=== PATIENT | male | born 1960 | race Caucasian/White ===

== ENCOUNTER 2018-04-20 00:35 | Inpatient (IN) | payer MEDICAID ==
[~2018-04-20] VITALS: Ht 182.9 cm; Wt 104.0 kg
[2018-04-20 01:26] LABS: PARTIAL THROMBOPLASTIN TIME 29 SECONDS (22-32); PROTHROMBIN TIME 10.5 SECONDS (9.0-12.0)
[2018-04-20 01:27] LABS: CHLORIDE 99 MMOL/L (99-107); POTASSIUM 3.6 MMOL/L (3.5-5.1); SODIUM 134 MMOL/L (135-145)
[2018-04-20 01:40] LABS: ANION GAP 8 (8-16); BILIRUBIN,TOTAL 0.3 MG/DL (0.1-1.0); BLOOD UREA NITROGEN 7 MG/DL (7-18); BUN/CREATININE RATIO 6.8 (5.4-32.0); CALCIUM 8.7 MG/DL (8.5-10.1); CREATININE 1.03 MG/DL (0.60-1.10); GLUCOSE 143 MG/DL (70-104); TOTAL CARBON DIOXIDE 27.2 MMOL/L (24-32); TOTAL PROTEIN 6.7 G/DL (6.4-8.2); eGFR 75 ML/MIN
[2018-04-20] MEDS ORDERED: ipratropium/albuterol 3ml nebule NEB PRN (01:40)
[2018-04-20 01:41] LABS: ALANINE AMINOTRANSFERASE 58 U/L (12-78); ALBUMIN 3.1 G/DL (3.4-5.0); ALBUMIN/GLOBULIN RATIO 0.9 (1.1-1.5); ALKALINE PHOSPHATASE 91 IU/L (46-116); ASPARTATE AMINO TRANSFERASE 40 U/L (10-37)
[2018-04-20] MEDS ORDERED: methylPREDNISolone sod succ 125mg/2ml vial IV ONE (02:00)
[2018-04-20] MEDS ORDERED: guaiFENesin/codeine phos 10ml UD oral syrup PO ONE (02:00)
[2018-04-20 02:01] LABS: BASOPHILS % (AUTO) 0.4 % (0-1); EOSINOPHILS # (AUTO) 0.1 X10'3 (0-0.9); EOSINOPHILS % (AUTO) 1.6 % (0-6); HEMATOCRIT 43.3 % (42.0-52.0); HEMOGLOBIN 14.6 g/dl (14.0-17.9); LYMPHOCYTES # (AUTO) 1.1 X10'3 (1.1-4.8); LYMPHOCYTES % (AUTO) 14.1 % (21-51); MEAN CORPUSCULAR HEMOGLOBIN 29.7 PG (27.0-31.0); MEAN CORPUSCULAR HGB CONC 33.7 % (33.0-36.5); MEAN CORPUSCULAR VOLUME 87.9 FL (78-98); MEAN PLATELET VOLUME 9.4 FL (7.4-10.4); MONOCYTES % (AUTO) 12.5 % (2-12); NEUTROPHILS # (AUTO) 5.6 X10'3 (1.8-7.7); NEUTROPHILS % (AUTO) 71.4 % (42-75); PLATELET COUNT 267 X10'3 (140-440); RED BLOOD COUNT 4.93 X10'6 (4.70-6.10); RED CELL DISTRIBUTION WIDTH 13.6 % (11.5-14.5); WHITE BLOOD COUNT 7.9 X10'3 (4.5-11.0)
[2018-04-20 03:36] LABS: ABG BASE EXCESS 3.2 mmol/L (-2.0-3.0); ABG OXYGEN SATURATION 87.9 % (95-98); ABG PH (T) 7.377 (7.350-7.450); ABG PO2 (T) 56.6 mmHg (83-108); PATIENT TEMPERATURE 38.1; TOTAL HEMOGLOBIN 14.4 G/dl (14.0-18.0)
[2018-04-20] MEDS ORDERED: HYDROmorphone 1 mg/ml syringe IV PRN (03:55)
[2018-04-20] MEDS ORDERED: diphenhydrAMINE 50 mg/ml inj IV PRN (03:55)
[2018-04-20] MEDS ORDERED: metoclopramide 5 mg/ml inj IV PRN (03:55)
[2018-04-20] MEDS ORDERED: acetaminophen 325mg tablet PO PRN ×2 (03:55)
[2018-04-20] MEDS ORDERED: magnesium hydroxide 30ml (MOM) UD suspension PO PRN (03:55)
[2018-04-20] MEDS ORDERED: ondansetron/PF 4mg/2ml inj IV PRN (03:55)
[2018-04-20] MEDS ORDERED: diphenhydrAMINE 25mg capsule PO PRN (03:55)
[2018-04-20] MEDS ORDERED: bisacodyl 10mg suppository rectal RC PRN (03:55)
[2018-04-20] MEDS ORDERED: acetaminophen 650mg rectal suppository RC PRN (03:55)
[2018-04-20] MEDS ORDERED: morphine 2 MG/ML inj. syringe IV PRN (03:55)
[2018-04-20] MEDS ORDERED: mag hydrox/Alum hydrox/simeth 30ml oral suspension PO PRN (03:55)
[2018-04-20] MEDS ORDERED: HYDROcodone/acetaminophen 10/325mg tab PO PRN (03:55)
[2018-04-20] MEDS ORDERED: MESSAGE TO PHARMACY PO ONE (04:05)
[2018-04-20] MEDS ORDERED: dextrose 50%-water 50ml dispensing syringe IV PRN ×2 (04:05)
[2018-04-20] MEDS ORDERED: glucagon, human recombinant 1mg kit SUBCUT PRN (04:05)
[2018-04-20] MEDS ORDERED: dextrose ORAL solution 15 GM/59 ML bottle PO PRN ×2 (04:05)
[2018-04-20] MEDS: potassium Cl 20mEq in NS 1,000 ML IV SCH ×3 (04:13→19:35)
[2018-04-20 04:21] LABS: CLARITY,URINE CLEAR (Clear); COLOR,URINE YELLOW (Yellow); GLUCOSE, URINE NEGATIVE (Neg); KETONES,URINE 15 mg/dl (Neg); LEUKOCYTE ESTERASE ,URINE NEGATIVE (Neg); NITRITES, URINE NEGATIVE (Neg); OCCULT BLOOD,URINE NEGATIVE (Neg); PROTEIN,URINE TRACE mg/dl (Neg); UROBILINOGEN,URINE 0.2 E.U/dL (0.2-1.0)
[2018-04-20 04:23] LABS: UA COLLECTION TYPE CLN CATCH MIDSTREAM
[2018-04-20 04:29] LABS: BACTERIA,URINE NONE SEEN /HPF (Neg); MUCUS STRANDS MANY /LPF (Neg); RBC,URINE NONE SEEN /HPF (0-2); SQUAMOUS EPITHELIAL CELL,UR MANY /LPF (FEW); WBC,URINE 0-4 /HPF (0-4)
[2018-04-20 04:40] LABS: D-DIMER 1.17 MG/L FEU (0-0.50)
[2018-04-20] MEDS ORDERED: TRAZ300T2 PO (04:50)
[2018-04-20] MEDS ORDERED: METF-436 PO (04:50)
[2018-04-20 05:45] LABS: URINE AMPHETAMINE SCREEN NEGATIVE (Neg); URINE BARBITUATE SCREEN NEGATIVE (Neg); URINE BENZODIAZEPINES SCREEN NEGATIVE (Neg); URINE CANNABINOID SCREEN NEGATIVE (Neg); URINE COCAINE SCREEN NEGATIVE (Neg); URINE METHADONE SCREEN NEGATIVE (Neg); URINE OPIATE SCREEN POSITIVE (Neg); URINE PHENCYCLIDINE SCREEN NEGATIVE (Neg)
[2018-04-20 06:00] VITALS: BP 133/88
[2018-04-20 06:55] LABS: MAGNESIUM 1.3 MG/DL (1.5-2.4); PHOSPHORUS 2.5 MG/DL (2.3-4.5)
[2018-04-20 07:06] LABS: HEMOGLOBIN A1C 7.2 % (4.5-6.2)
[2018-04-20] MEDS: CefTRIAXone/D5W-Rocephin 1gm 50 ML IV SCH ×2 (07:42→19:36)
[2018-04-20] MEDS: pantoprazole 40mg Tablet.DR PO SCH (07:42)
[2018-04-20] MEDS: docusate sod 100mg capsule PO SCH ×3 (07:53→20:04)
[2018-04-20] MEDS ORDERED: heparin, porcine 5000 units/ml vial SQ SCH (08:00)
[2018-04-20] MEDS ORDERED: nicotine 21mg patch - 24 hr TD SCH (08:00)
[2018-04-20] MEDS ORDERED: methylPREDNISolone sod succ 125mg/2ml vial IV SCH (08:00)
[2018-04-20] MEDS ORDERED: azithromycin/NS 500mg/250ml 250 ML IV SCH (08:00)
[2018-04-20] MEDS: oseltamivir phos 75mg capsule PO SCH ×2 (10:20→20:00)
[2018-04-20] MEDS ORDERED: magnesium 2GM in 50ml NS 50 ML IV PRN (10:30)
[2018-04-20] MEDS ORDERED: magnesium Cl slow-release 64mg tablet PO PRN (10:30)
[2018-04-20] MEDS ORDERED: magnesium 4gm in 100ml NS 100 ML IV PRN (10:30)
[2018-04-20] MEDS ORDERED: potassium Cl 20 mEq SR tablet PO PRN ×2 (10:30)
[2018-04-20 11:00] VITALS: BP 115/80
[2018-04-20] MEDS ORDERED: iohexol 350MG/ML 100ml bottle IV ONE (11:13)
[2018-04-20] MEDS: [UNRECOGNIZED DRUG - REMARK] PO NR (11:51)
[2018-04-20] MEDS: insulin Lispro (HumaLOG) vial - multi-dose SQ SCH ×3 (13:15→21:47)
[2018-04-20 15:00] VITALS: BP 121/75
[2018-04-20] MEDS: guaiFENesin 200 MG/10 ML oral syrup UD cup PO PRN ×2 (15:16→19:36)
[2018-04-20] MEDS: ipratropium/albuterol 3ml nebule NEB SCH ×3 (16:40→23:00)
[2018-04-20] MEDS: methylPREDNISolone sod succ 125mg/2ml vial IV SCH (16:56)
[2018-04-20 19:00] VITALS: BP 133/76
[2018-04-20] MEDS: heparin, porcine 5000 units/ml vial SQ SCH (19:37)
[2018-04-20] MEDS ORDERED: traZODone 150mg tablet PO SCH (20:00)
[2018-04-20] MEDS ORDERED: temazepam 15mg capsule PO PRN (21:00)
[2018-04-20 23:00] VITALS: BP 129/68
[2018-04-21 03:00] VITALS: BP 108/59
[2018-04-21] MEDS: ipratropium/albuterol 3ml nebule NEB SCH ×3 (03:00→11:06)
[2018-04-21 06:54] LABS: BASOPHILS % (AUTO) 0.1 % (0-1); EOSINOPHILS % (AUTO) 0 % (0-6); HEMOGLOBIN 13.9 g/dl (14.0-17.9); LYMPHOCYTES # (AUTO) 0.6 X10'3 (1.1-4.8); LYMPHOCYTES % (AUTO) 5.3 % (21-51); MEAN CORPUSCULAR HEMOGLOBIN 29.3 PG (27.0-31.0); MEAN CORPUSCULAR HGB CONC 33.1 % (33.0-36.5); MEAN CORPUSCULAR VOLUME 88.6 FL (78-98); MEAN PLATELET VOLUME 9.1 FL (7.4-10.4); MONOCYTES # (AUTO) 0.6 X10'3 (0-0.9); MONOCYTES % (AUTO) 5.3 % (2-12); NEUTROPHILS # (AUTO) 9.5 X10'3 (1.8-7.7); NEUTROPHILS % (AUTO) 89.3 % (42-75); PLATELET COUNT 287 X10'3 (140-440); RED BLOOD COUNT 4.74 X10'6 (4.70-6.10); RED CELL DISTRIBUTION WIDTH 13.2 % (11.5-14.5); WHITE BLOOD COUNT 10.7 X10'3 (4.5-11.0)
[2018-04-21 07:00] VITALS: BP 126/77
[2018-04-21 07:17] LABS: ALANINE AMINOTRANSFERASE 48 U/L (12-78); ALBUMIN 2.7 G/DL (3.4-5.0); ALBUMIN/GLOBULIN RATIO 0.8 (1.1-1.5); ALKALINE PHOSPHATASE 70 IU/L (46-116); ANION GAP 9 (8-16); ASPARTATE AMINO TRANSFERASE 26 U/L (10-37); BILIRUBIN,TOTAL 0.1 MG/DL (0.1-1.0); BLOOD UREA NITROGEN 11 MG/DL (7-18); BUN/CREATININE RATIO 11.3 (5.4-32.0); CALCIUM 7.9 MG/DL (8.5-10.1); CHLORIDE 104 MMOL/L (99-107); CHOL/HDL RATIO 3.7 (0.00-4.99); CHOLESTEROL 148 MG/DL (0-200); CREATININE 0.97 MG/DL (0.60-1.10); GLUCOSE 230 MG/DL (70-104); HDL CHOLESTEROL 40 MG/DL (35-60); LDL CHOLESTEROL 93 MG/DL (50-100); POTASSIUM 3.8 MMOL/L (3.5-5.1); SODIUM 139 MMOL/L (135-145); TOTAL CARBON DIOXIDE 26.5 MMOL/L (24-32); TOTAL PROTEIN 6.2 G/DL (6.4-8.2); TRIGLYCERIDES 83 MG/DL (20-135); eGFR 80 ML/MIN
[2018-04-21] MEDS: pantoprazole 40mg Tablet.DR PO SCH (07:26)
[2018-04-21] MEDS: oseltamivir phos 75mg capsule PO SCH (07:26)
[2018-04-21] MEDS: heparin, porcine 5000 units/ml vial SQ SCH (07:27)
[2018-04-21] MEDS: CefTRIAXone/D5W-Rocephin 1gm 50 ML IV SCH (07:27)
[2018-04-21] MEDS: methylPREDNISolone sod succ 125mg/2ml vial IV SCH ×2 (07:27)
[2018-04-21] MEDS: guaiFENesin 200 MG/10 ML oral syrup UD cup PO PRN (07:38)
[2018-04-21] MEDS ORDERED: nicotine 14mg patch - 24hr TD SCH (08:00)
[2018-04-21] MEDS: insulin Lispro (HumaLOG) vial - multi-dose SQ SCH (08:51)
[2018-04-21] MEDS: [UNRECOGNIZED DRUG - REMARK] PO NR (10:14)
[2018-04-21 11:00] VITALS: BP 141/73
[2018-04-21] MEDS ORDERED: ALBU6.7H INH (11:17)
[2018-04-21] MEDS ORDERED: CEPH500C5 PO (11:17)
[2018-04-21] MEDS ORDERED: FAMO-128 PO (11:17)
[2018-04-21] MEDS ORDERED: PRED10TA23 PO (11:17)
[2018-04-21] MEDS ORDERED: TAM75C PO (11:17)
== END 2018-04-21 13:47 | disposition home or self-care (01) | DRG 133 ==
LOC: ER 00:36 → ED HOLD 03:53 → PCU 3S 05:27
PROVIDERS: ADMIT Family Medicine; ATTEND Internal Medicine
PROC: B32T1ZZ Computerized Tomography (CT Scan) of Left Pulmonary Artery using Low Osmolar Contrast (ICD-10-PCS; principal; 2018-04-20)
PROC: B3201ZZ Computerized Tomography (CT Scan) of Thoracic Aorta using Low Osmolar Contrast (ICD-10-PCS; 2018-04-20)
PROC: B32S1ZZ Computerized Tomography (CT Scan) of Right Pulmonary Artery using Low Osmolar Contrast (ICD-10-PCS; 2018-04-20)
DX: J96.01 Acute respiratory failure with hypoxia (principal); E11.65 Type 2 diabetes mellitus with hyperglycemia; E83.42 Hypomagnesemia; J44.1 Chronic obstructive pulmonary disease with (acute) exacerbation; J09.X2 Influenza due to identified novel influenza A virus with other respiratory manifestations; J96.02 Acute respiratory failure with hypercapnia; F17.200 Nicotine dependence, unspecified, uncomplicated; Z88.8 Allergy status to other drugs, medicaments and biological substances; Z79.899 Other long term (current) drug therapy; Z71.6 Tobacco abuse counseling
CPT/HCPCS: 36415; 36600; 71045; 71275; 80053; 80061; 80305; 81001; 82803; 82948; 83036; 83605; 83735; 83880; 84100; 84145; 84439; 84443; 84480; 84484; 85018; 85025; 85379; 85610; 85730; 87040; 87502; 87503; 93306; 93970; 94640; 94760; 96374; 99285; G0378; J0456; J0696; J1644; J2930; Q9967

== ENCOUNTER 2019-02-06 08:56 | Emergency (ER) | payer MEDICAID ==
[~2019-02-06] VITALS: Ht 182.9 cm; Wt 80.0 kg
[~2019-02-06 08:56] MED LIST: ALBU6.7H9 INH; FAMO-128 PO; METF-436 PO; TAM75C PO; TRAZ300T2 PO
[2019-02-06 09:33] LABS: BASOPHILS # (AUTO) 0.1 X10'3 (0-0.2); BASOPHILS % (AUTO) 0.8 % (0-1); EOSINOPHILS # (AUTO) 0.1 X10'3 (0-0.9); EOSINOPHILS % (AUTO) 0.8 % (0-6); HEMATOCRIT 48.9 % (42.0-52.0); HEMOGLOBIN 16.8 g/dl (14.0-17.9); LYMPHOCYTES # (AUTO) 1.6 X10'3 (1.1-4.8); LYMPHOCYTES % (AUTO) 15.1 % (21-51); MEAN CORPUSCULAR HEMOGLOBIN 30.6 PG (27.0-31.0); MEAN CORPUSCULAR HGB CONC 34.4 g/dL (33.0-36.5); MEAN CORPUSCULAR VOLUME 88.8 FL (78-98); NEUTROPHILS # (AUTO) 8.1 X10'3 (1.8-7.7); NEUTROPHILS % (AUTO) 74.3 % (42-75); PLATELET COUNT 393 X10'3 (140-440); RED BLOOD COUNT 5.51 X10'6 (4.70-6.10); RED CELL DISTRIBUTION WIDTH 13.9 % (11.5-14.5); WHITE BLOOD COUNT 10.9 X10'3 (4.5-11.0)
[2019-02-06 09:42] LABS: PARTIAL THROMBOPLASTIN TIME 28 SECONDS (22-32)
[2019-02-06 09:46] LABS: ALANINE AMINOTRANSFERASE 25 U/L (12-78); ALBUMIN 3.6 G/DL (3.4-5.0); ALBUMIN/GLOBULIN RATIO 0.9 (1.1-1.5); ALKALINE PHOSPHATASE 180 IU/L (46-116); ANION GAP 6 (8-16); ASPARTATE AMINO TRANSFERASE 13 U/L (10-37); BILIRUBIN,TOTAL 0.4 MG/DL (0.1-1.0); BLOOD UREA NITROGEN 13 MG/DL (7-18); CALCIUM 9.5 MG/DL (8.5-10.1); CHLORIDE 98 MMOL/L (99-107); CREATININE 1.08 MG/DL (0.60-1.10); GLUCOSE 158 MG/DL (70-104); POTASSIUM 4.4 MMOL/L (3.5-5.1); SODIUM 136 MMOL/L (135-145); TOTAL CARBON DIOXIDE 32.3 MMOL/L (24-32); TOTAL PROTEIN 7.8 G/DL (6.4-8.2); eGFR 70 ML/MIN
[2019-02-06] MEDS ORDERED: cyclobenzaprine 10mg tablet PO ONE (12:05)
[2019-02-06] MEDS ORDERED: naproxen 500mg tablet PO ONE (12:05)
[2019-02-06] MEDS ORDERED: HYDROcodone/acetaminophen 10/325mg tab PO ONE (12:05)
[2019-02-06] MEDS ORDERED: NAPR-56 PO (12:09)
[2019-02-06] MEDS ORDERED: HYDR-4353 PO (12:09)
[2019-02-06] MEDS ORDERED: LISI10TA4 PO (12:09)
[2019-02-06] MEDS ORDERED: ZOLP10TA5 PO (12:09)
[2019-02-06 12:29] VITALS: BP 131/86
== END 2019-02-06 12:31 | disposition home or self-care (01) ==
LOC: ER 08:56
DX: R07.89 Other chest pain (principal); I10 Essential (primary) hypertension; R22.32 Localized swelling, mass and lump, left upper limb; E78.00 Pure hypercholesterolemia, unspecified; Z59.0 Homelessness; Z88.8 Allergy status to other drugs, medicaments and biological substances; V49.88XA Car occupant (driver) (passenger) injured in other specified transport accidents, initial encounter; Z79.899 Other long term (current) drug therapy; Y93.89 Activity, other specified; Y92.413 State road as the place of occurrence of the external cause; Y99.9 Unspecified external cause status
CPT/HCPCS: 36415; 71045; 80053; 84484; 85025; 85610; 85730; 93005; 99284

== ENCOUNTER 2019-03-01 11:34 | Emergency (ER) | payer MEDICAID ==
[~2019-03-01] VITALS: Ht 185.4 cm; Wt 80.0 kg
[~2019-03-01 11:34] MED LIST changes: +LISI10TA4 PO; +NAPR-56 PO; +ZOLP10TA5 PO
[2019-03-01 11:51] VITALS: BP 112/78
[2019-03-01] MEDS ORDERED: SULF1TAB49 PO (13:13)
[2019-03-01] MEDS ORDERED: IBUP-1986 PO (13:13)
[2019-03-01] MEDS ORDERED: CEPH-572 PO (13:13)
== END 2019-03-01 13:29 | disposition home or self-care (01) ==
LOC: ER 11:35
DX: L03.012 Cellulitis of left finger (principal); R07.89 Other chest pain; E78.00 Pure hypercholesterolemia, unspecified; I10 Essential (primary) hypertension; F15.90 Other stimulant use, unspecified, uncomplicated; Z87.891 Personal history of nicotine dependence; Z59.0 Homelessness; Z88.8 Allergy status to other drugs, medicaments and biological substances; Z79.899 Other long term (current) drug therapy
CPT/HCPCS: 99283

== ENCOUNTER 2019-03-26 09:31 | Emergency (ER) | payer MEDICAID ==
[~2019-03-26] VITALS: Ht 182.9 cm; Wt 81.0 kg
[~2019-03-26 09:31] MED LIST changes: +IBUP-1986 PO; -NAPR-56 PO; -ZOLP10TA5 PO
[2019-03-26 09:45] VITALS: BP 146/92
[2019-03-26] MEDS ORDERED: ketorolac tromethamine 15mg/ml inj. IV ONE (10:40)
== END 2019-03-26 11:13 | disposition home or self-care (01) ==
LOC: ER 09:32
DX: S62.313A Displaced fracture of base of third metacarpal bone, left hand, initial encounter for closed fracture (principal); E78.00 Pure hypercholesterolemia, unspecified; I10 Essential (primary) hypertension; F10.99 Alcohol use, unspecified with unspecified alcohol-induced disorder; F15.90 Other stimulant use, unspecified, uncomplicated; Z59.0 Homelessness; Z56.0 Unemployment, unspecified; Z79.899 Other long term (current) drug therapy; Z79.84 Long term (current) use of oral hypoglycemic drugs; W18.39XA Other fall on same level, initial encounter; Y93.89 Activity, other specified; Y92.89 Other specified places as the place of occurrence of the external cause; Y99.8 Other external cause status; Y90.9 Presence of alcohol in blood, level not specified
CPT/HCPCS: 29125; 73130; 96374; 99283; J1885

== ENCOUNTER 2019-06-22 16:12 | Inpatient (IN) | payer MEDICAID ==
[~2019-06-22] VITALS: Ht 182.9 cm; Wt 75.0 kg
[2019-06-22 18:01] LABS: BASOPHILS # (AUTO) 0.1 X10'3 (0-0.2); BASOPHILS % (AUTO) 0.3 % (0-1); EOSINOPHILS % (AUTO) 0.1 % (0-6); HEMATOCRIT 41.9 % (42.0-52.0); HEMOGLOBIN 14.1 g/dl (14.0-17.9); LYMPHOCYTES # (AUTO) 0.9 X10'3 (1.1-4.8); MEAN CORPUSCULAR HEMOGLOBIN 28.8 PG (27.0-31.0); MEAN CORPUSCULAR HGB CONC 33.8 g/dL (33.0-36.5); MEAN CORPUSCULAR VOLUME 85.4 FL (78-98); MEAN PLATELET VOLUME 8.4 FL (7.4-10.4); MONOCYTES # (AUTO) 1.7 X10'3 (0-0.9); MONOCYTES % (AUTO) 6.1 % (2-12); NEUTROPHILS # (AUTO) 25.9 X10'3 (1.8-7.7); NEUTROPHILS % (AUTO) 90.5 % (42-75); PLATELET COUNT 293 X10'3 (140-440); RED BLOOD COUNT 4.91 X10'6 (4.70-6.10); RED CELL DISTRIBUTION WIDTH 13.7 % (11.5-14.5)
[2019-06-22 18:06] LABS: WHITE BLOOD COUNT 28.6 X10'3 (4.5-11.0)
[2019-06-22 18:12] LABS: ALBUMIN 3.7 G/DL (3.4-5.0); ANION GAP 8 (8-16); BLOOD UREA NITROGEN 16 MG/DL (7-18); BUN/CREATININE RATIO 16.5 (5.4-32.0); C-REACTIVE PROTEIN 3.02 MG/DL (0.0-0.5); CALCIUM 9.2 MG/DL (8.5-10.1); CHLORIDE 97 MMOL/L (99-107); CREATININE 0.97 MG/DL (0.60-1.10); GLUCOSE 127 MG/DL (70-104); POTASSIUM 4.1 MMOL/L (3.5-5.1); SODIUM 131 MMOL/L (135-145); TOTAL CARBON DIOXIDE 26.5 MMOL/L (24-32); eGFR 80 ML/MIN
[2019-06-22] MEDS ORDERED: HYDROcodone/acetaminophen 5mg/325mg tablet PO ONE (18:25)
[2019-06-22] MEDS ORDERED: vancomycin/NS 1 GM ADD-VANTAGE 250 ML IV ONE (18:25)
[2019-06-22] MEDS ORDERED: piperacillin/tazo 3.375gm/50ml 50 ML IV ONE (18:25)
[2019-06-22 18:47] LABS: TOTAL CELLS COUNTED 100
[2019-06-22 18:48] LABS: PLATELET ESTIMATE NORMAL
[2019-06-22] MEDS ORDERED: ZOLP10TA PO (19:21)
[2019-06-22] MEDS ORDERED: normal saline 1000ML IV soln IVB ONE (19:30)
--- NOTE | 2019-06-22 20:33 | NUR ---
relieving RN for break, pt amb with steady gait to restroom, 1st liter NS infusing w/o, antibiotic infusing via pump, IV site is patent and clear,
[2019-06-22] MEDS ORDERED: acetaminophen 325mg tablet PO PRN ×2 (21:00)
[2019-06-22] MEDS ORDERED: mag hydrox/Alum hydrox/simeth 30ml oral suspension PO PRN (21:00)
[2019-06-22] MEDS ORDERED: magnesium hydroxide 30ml (MOM) UD suspension PO PRN (21:00)
[2019-06-22] MEDS ORDERED: ondansetron/PF 4mg/2ml inj IV PRN (21:00)
[2019-06-22] MEDS ORDERED: magnesium Cl slow-release 64mg tablet PO PRN (21:00)
[2019-06-22] MEDS ORDERED: magnesium 2GM in 50ml NS 50 ML IV PRN (21:00)
[2019-06-22] MEDS ORDERED: potassium CL 10mEq/100ml bag 100 ML IV PRN ×2 (21:00)
[2019-06-22] MEDS ORDERED: potassium Cl 20 mEq SR tablet PO PRN ×2 (21:00)
[2019-06-22] MEDS ORDERED: morphine 2 MG/ML inj. syringe IV PRN ×2 (21:00)
[2019-06-22] MEDS ORDERED: magnesium 4gm in 100ml NS 100 ML IV PRN (21:00)
--- NOTE | 2019-06-22 22:35 | NUR ---
PT ARRIVED TO ROOM 4006 FROM ER. PT HAS BEEN ORIENTED TO THE ROOM. VSS. RECEIVED REPORT FROM CHELLE MOORE PRIOR TO PT'S ARRIVAL.
[2019-06-22 22:40] VITALS: BP 114/74
[2019-06-22 23:29] LABS: HEMOGLOBIN A1C 6.7 % (4.5-6.2)
[2019-06-23] MEDS: piperacillin/tazo 3.375gm/50ml 50 ML IV SCH ×3 (01:42→18:51)
[2019-06-23] MEDS: HYDROcodone/acetaminophen 5mg/325mg tablet PO PRN ×3 (04:22→18:57)
[2019-06-23 05:31] LABS: BASOPHILS % (AUTO) 0.2 % (0-1); EOSINOPHILS # (AUTO) 0.1 X10'3 (0-0.9); EOSINOPHILS % (AUTO) 0.3 % (0-6); HEMATOCRIT 42.7 % (42.0-52.0); HEMOGLOBIN 14.4 g/dl (14.0-17.9); LYMPHOCYTES % (AUTO) 10.3 % (21-51); MEAN CORPUSCULAR HGB CONC 33.6 g/dL (33.0-36.5); MEAN CORPUSCULAR VOLUME 86.4 FL (78-98); MEAN PLATELET VOLUME 8.9 FL (7.4-10.4); MONOCYTES # (AUTO) 2.1 X10'3 (0-0.9); MONOCYTES % (AUTO) 10.4 % (2-12); NEUTROPHILS # (AUTO) 15.6 X10'3 (1.8-7.7); NEUTROPHILS % (AUTO) 78.8 % (42-75); PLATELET COUNT 313 X10'3 (140-440); RED BLOOD COUNT 4.94 X10'6 (4.70-6.10); RED CELL DISTRIBUTION WIDTH 14.1 % (11.5-14.5); WHITE BLOOD COUNT 19.8 X10'3 (4.5-11.0)
[2019-06-23 05:45] LABS: ALBUMIN 3.3 G/DL (3.4-5.0); ANION GAP 6 (8-16); BLOOD UREA NITROGEN 16 MG/DL (7-18); BUN/CREATININE RATIO 14.8 (5.4-32.0); CALCIUM 9.2 MG/DL (8.5-10.1); CHLORIDE 104 MMOL/L (99-107); CREATININE 1.08 MG/DL (0.60-1.10); GLUCOSE 122 MG/DL (70-104); MAGNESIUM 1.7 MG/DL (1.5-2.4); SODIUM 139 MMOL/L (135-145); eGFR 70 ML/MIN
--- NOTE | 2019-06-23 06:34 | NUR ---
Problems reprioritized. Patient report given, questions answered & plan of care reviewed with CHELLE BOB.
[2019-06-23 06:49] VITALS: BP 130/83
[2019-06-23] MEDS: enoxaparin 40mg/0.4ml syringe SQ SCH (07:26)
[2019-06-23] MEDS: vancomycin/NS 1 GM ADD-VANTAGE 250 ML IV SCH ×2 (07:27→21:49)
[2019-06-23] MEDS: lactobacillus rhamnosus 10,000 MMU CELLS/CAPSULE PO SCH ×2 (07:27→21:49)
[2019-06-23] MEDS: lisinopril 10 MG tablet PO SCH (07:27)
[2019-06-23] MEDS: K and/or MAG REPLACEMENT MC SCH ×2 (08:00→20:00)
[2019-06-23] MEDS ORDERED: pneumococcal 23-VAL P-sac vacc 25 mcg/0.5ml vial IMVAC ONE (10:00)
[2019-06-23] MEDS ORDERED: FLU VACC QS2019-20 36MOS UP/PF 60 MCG/0.5 ML SYRINGE IMVAC ONE (10:00)
[2019-06-23 10:03] LABS: PLATELET ESTIMATE NORMAL; TOTAL CELLS COUNTED 100
[2019-06-23 12:01] VITALS: BP 116/69
--- NOTE | 2019-06-23 12:24 | NUR ---
received report from tequila helm
--- NOTE | 2019-06-23 18:17 | NUR ---
GAVE REPORT TO CHELLE HIGGINBOTHAM
[2019-06-23 18:30] VITALS: BP 126/73
--- NOTE | 2019-06-23 19:13 | NUR ---
Patient in room ORTHO 4006. I have received report from CHELLE RODRIGUEZ and had the opportunity to ask questions and assume patient care.
[2019-06-23] MEDS: zolpidem 5mg tablet PO PRN (21:48)
[2019-06-23 22:00] VITALS: BP 133/79
[2019-06-24] MEDS: piperacillin/tazo 3.375gm/50ml 50 ML IV SCH ×3 (02:02→19:33)
[2019-06-24 06:01] LABS: BASOPHILS # (AUTO) 0.1 X10'3 (0-0.2); BASOPHILS % (AUTO) 0.6 % (0-1); EOSINOPHILS # (AUTO) 0.2 X10'3 (0-0.9); EOSINOPHILS % (AUTO) 1.5 % (0-6); HEMATOCRIT 39.2 % (42.0-52.0); HEMOGLOBIN 13.4 g/dl (14.0-17.9); LYMPHOCYTES # (AUTO) 1.8 X10'3 (1.1-4.8); LYMPHOCYTES % (AUTO) 17.7 % (21-51); MEAN CORPUSCULAR HEMOGLOBIN 29.5 PG (27.0-31.0); MEAN CORPUSCULAR HGB CONC 34.1 g/dL (33.0-36.5); MEAN CORPUSCULAR VOLUME 86.6 FL (78-98); MEAN PLATELET VOLUME 8.9 FL (7.4-10.4); MONOCYTES # (AUTO) 1.2 X10'3 (0-0.9); MONOCYTES % (AUTO) 11.7 % (2-12); NEUTROPHILS # (AUTO) 6.8 X10'3 (1.8-7.7); NEUTROPHILS % (AUTO) 68.5 % (42-75); PLATELET COUNT 283 X10'3 (140-440); RED BLOOD COUNT 4.53 X10'6 (4.70-6.10); WHITE BLOOD COUNT 9.9 X10'3 (4.5-11.0)
[2019-06-24 06:09] LABS: ALBUMIN 2.7 G/DL (3.4-5.0); ANION GAP 7 (8-16); BLOOD UREA NITROGEN 14 MG/DL (7-18); BUN/CREATININE RATIO 16.9 (5.4-32.0); CALCIUM 9.3 MG/DL (8.5-10.1); CHLORIDE 106 MMOL/L (99-107); CREATININE 0.83 MG/DL (0.60-1.10); GLUCOSE 124 MG/DL (70-104); MAGNESIUM 1.8 MG/DL (1.5-2.4); POTASSIUM 4.2 MMOL/L (3.5-5.1); SODIUM 140 MMOL/L (135-145); eGFR > 90 ML/MIN
--- NOTE | 2019-06-24 06:32 | NUR ---
Problems reprioritized. Patient report given, questions answered & plan of care reviewed with CHELLE SAUCEDO.
--- NOTE | 2019-06-24 06:35 | NUR ---
Patient in room ORTHO 4006. I have received report from CHELLE Calles and had the opportunity to ask questions and assume patient care.
[2019-06-24] MEDS: K and/or MAG REPLACEMENT MC SCH ×2 (08:00→19:33)
[2019-06-24] MEDS: vancomycin/NS 1 GM ADD-VANTAGE 250 ML IV SCH ×2 (08:30→16:29)
[2019-06-24] MEDS: lactobacillus rhamnosus 10,000 MMU CELLS/CAPSULE PO SCH ×2 (08:45→19:33)
[2019-06-24] MEDS: lisinopril 10 MG tablet PO SCH (08:45)
[2019-06-24] MEDS: enoxaparin 40mg/0.4ml syringe SQ SCH (08:46)
[2019-06-24 10:00] VITALS: BP 138/80
--- NOTE | 2019-06-24 11:28 | NUR ---
Student documentation: I have reviewed all interventions, assessments performed and documented by Karey [facility]ANK [facility]. Student Medication Administration: For this medication-pass time frame, all medication were reviewed, dispensed, administered and documented per hospital policy by Kareycarlos eduardo FRANK [facility].
[2019-06-24] MEDS: HYDROcodone/acetaminophen 5mg/325mg tablet PO PRN ×2 (16:34→21:42)
[2019-06-24 18:00] VITALS: BP 150/96
--- NOTE | 2019-06-24 18:25 | NUR ---
Problems reprioritized. Patient report given, questions answered & plan of care reviewed with CHELLE Hagen.
--- NOTE | 2019-06-24 18:43 | NUR ---
Patient in room ORTHO 4013. I have received report from aCren CORBETT and had the opportunity to ask questions and assume patient care.
--- NOTE | 2019-06-24 20:47 | NUR ---
Page Sent promotional table spacer PAGER ID: [phone] MESSAGE: Galen Quick 4006 here for left arm cellulitis had a critical vanco trough of 22.4. he is receiving vanco q8, next dose at midnight. also receiving Zosyn. would you like me to administer? Thanks Hieu [phone]
[2019-06-24 22:00] VITALS: BP 133/73
[2019-06-25] MEDS ORDERED: VANCOMYCIN 750MG IV in NS 250 ML IV SCH ×2
[2019-06-25] MEDS: piperacillin/tazo 3.375gm/50ml 50 ML IV SCH ×3 (02:19→18:00)
[2019-06-25] MEDS: HYDROcodone/acetaminophen 5mg/325mg tablet PO PRN ×3 (02:29→17:15)
[2019-06-25] MEDS ORDERED: LIDOcaine 1% W/epiNEPHrine 1:100,000 20ml vial SQ ONE (05:35)
[2019-06-25 06:00] VITALS: BP 130/72
--- NOTE | 2019-06-25 06:27 | NUR ---
Problems reprioritized. Patient report given, questions answered & plan of care reviewed with Maciel CORBETT.
[2019-06-25 06:50] LABS: BASOPHILS # (AUTO) 0.1 X10'3 (0-0.2); BASOPHILS % (AUTO) 1.5 % (0-1); EOSINOPHILS # (AUTO) 0.2 X10'3 (0-0.9); EOSINOPHILS % (AUTO) 2.4 % (0-6); HEMATOCRIT 39.7 % (42.0-52.0); HEMOGLOBIN 13.5 g/dl (14.0-17.9); LYMPHOCYTES # (AUTO) 1.8 X10'3 (1.1-4.8); LYMPHOCYTES % (AUTO) 19.9 % (21-51); MEAN CORPUSCULAR HEMOGLOBIN 29.6 PG (27.0-31.0); MEAN CORPUSCULAR HGB CONC 33.9 g/dL (33.0-36.5); MEAN PLATELET VOLUME 8.6 FL (7.4-10.4); MONOCYTES % (AUTO) 11.2 % (2-12); NEUTROPHILS # (AUTO) 5.8 X10'3 (1.8-7.7); PLATELET COUNT 305 X10'3 (140-440); RED BLOOD COUNT 4.57 X10'6 (4.70-6.10); RED CELL DISTRIBUTION WIDTH 13.7 % (11.5-14.5)
[2019-06-25 07:00] LABS: ALBUMIN 2.8 G/DL (3.4-5.0); ANION GAP 6 (8-16); BLOOD UREA NITROGEN 17 MG/DL (7-18); BUN/CREATININE RATIO 18.9 (5.4-32.0); CALCIUM 9.1 MG/DL (8.5-10.1); CHLORIDE 105 MMOL/L (99-107); GLUCOSE 154 MG/DL (70-104); MAGNESIUM 1.7 MG/DL (1.5-2.4); POTASSIUM 4.2 MMOL/L (3.5-5.1); SODIUM 139 MMOL/L (135-145); TOTAL CARBON DIOXIDE 27.6 MMOL/L (24-32); eGFR 87 ML/MIN
[2019-06-25] MEDS ORDERED: VANCOMYCIN LEVEL IV ONE (07:30)
[2019-06-25] MEDS: K and/or MAG REPLACEMENT MC SCH ×2 (09:21→20:00)
[2019-06-25] MEDS: lactobacillus rhamnosus 10,000 MMU CELLS/CAPSULE PO SCH ×2 (09:30→20:00)
[2019-06-25] MEDS: lisinopril 10 MG tablet PO SCH (09:32)
[2019-06-25] MEDS: enoxaparin 40mg/0.4ml syringe SQ SCH (09:33)
[2019-06-25 10:00] VITALS: BP 140/83
[2019-06-25] MEDS: vancomycin/NS 1 GM ADD-VANTAGE 250 ML IV SCH ×2 (10:28→15:57)
--- NOTE | 2019-06-25 11:32 | NUR ---
Student documentation: I have reviewed all interventions, assessments performed and documented by aKrey [facility]. Student Medication Administration: For this medication-pass time frame, all medication were reviewed, dispensed, administered and documented per hospital policy by Kareycarlos eduardo FRANK [facility].
[2019-06-25] MEDS ORDERED: CLIN-90 PO (11:42)
[2019-06-25 18:00] VITALS: BP 127/89
--- NOTE | 2019-06-25 18:38 | NUR ---
Problems reprioritized. Patient report given, questions answered & plan of care reviewed with SHAJI CORBETT.
--- NOTE | 2019-06-25 19:00 | NUR ---
Patient in room ORTHO 4006. I have received report from and had the opportunity to ask questions and assume patient care.
[2019-06-25 22:00] VITALS: BP 139/86
[2019-06-25] MEDS: zolpidem 5mg tablet PO PRN (22:17)
[2019-06-26] MEDS: vancomycin/NS 1 GM ADD-VANTAGE 250 ML IV SCH ×2 (00:46→07:59)
[2019-06-26] MEDS: piperacillin/tazo 3.375gm/50ml 50 ML IV SCH ×2 (03:11→10:14)
[2019-06-26] MEDS: HYDROcodone/acetaminophen 5mg/325mg tablet PO PRN ×2 (05:58→10:35)
[2019-06-26 06:00] VITALS: BP 179/94
--- NOTE | 2019-06-26 06:32 | NUR ---
Patient in room ORTHO 4006. I have received report from CHELLE Alarcon and had the opportunity to ask questions and assume patient care.
[2019-06-26] MEDS ORDERED: VANCOMYCIN LEVEL IV ONE (07:30)
[2019-06-26] MEDS: K and/or MAG REPLACEMENT MC SCH (07:54)
[2019-06-26] MEDS: lactobacillus rhamnosus 10,000 MMU CELLS/CAPSULE PO SCH (07:58)
[2019-06-26] MEDS: lisinopril 10 MG tablet PO SCH (07:58)
[2019-06-26] MEDS: enoxaparin 40mg/0.4ml syringe SQ SCH (07:59)
[2019-06-26 08:39] LABS: ANION GAP 2 (8-16); BLOOD UREA NITROGEN 15 MG/DL (7-18); CALCIUM 9.5 MG/DL (8.5-10.1); CHLORIDE 105 MMOL/L (99-107); CREATININE 0.75 MG/DL (0.60-1.10); GLUCOSE 128 MG/DL (70-104); MAGNESIUM 1.7 MG/DL (1.5-2.4); SODIUM 138 MMOL/L (135-145); TOTAL CARBON DIOXIDE 31.3 MMOL/L (24-32); VANCOMYCIN,TROUGH 16.3 UG/ML (6.0-14.0); eGFR > 90 ML/MIN
[2019-06-26 08:45] LABS: POTASSIUM 5.4 MMOL/L (3.5-5.1)
[2019-06-26 09:49] LABS: BASOPHILS # (AUTO) 0.1 X10'3 (0-0.2); EOSINOPHILS # (AUTO) 0.2 X10'3 (0-0.9); EOSINOPHILS % (AUTO) 2.1 % (0-6); HEMATOCRIT 43.1 % (42.0-52.0); HEMOGLOBIN 14.6 g/dl (14.0-17.9); LYMPHOCYTES # (AUTO) 1.4 X10'3 (1.1-4.8); LYMPHOCYTES % (AUTO) 16.5 % (21-51); MEAN CORPUSCULAR HEMOGLOBIN 29.4 PG (27.0-31.0); MEAN CORPUSCULAR HGB CONC 33.9 g/dL (33.0-36.5); MEAN CORPUSCULAR VOLUME 86.7 FL (78-98); MEAN PLATELET VOLUME 8.6 FL (7.4-10.4); MONOCYTES # (AUTO) 0.7 X10'3 (0-0.9); MONOCYTES % (AUTO) 8.3 % (2-12); NEUTROPHILS # (AUTO) 6.2 X10'3 (1.8-7.7); NEUTROPHILS % (AUTO) 72.1 % (42-75); PLATELET COUNT 360 X10'3 (140-440); RED BLOOD COUNT 4.97 X10'6 (4.70-6.10); RED CELL DISTRIBUTION WIDTH 14.1 % (11.5-14.5); WHITE BLOOD COUNT 8.6 X10'3 (4.5-11.0)
[2019-06-26 09:56] VITALS: BP 155/83
--- NOTE | 2019-06-26 10:40 | NUR ---
PAGER ID: [phone] MESSAGE: [phone] Galen Quick: Patient was hoping you could come see him as soon as you get the chance. Also , patient was wondering if he could get a prescription for pain meds for DC. CHELLE Krueger Ext [phone]
--- NOTE | 2019-06-26 11:28 | NUR ---
Discharged stable per Dr Leslie for DC. PIV taken out. DC papers signed. Educated on follow-up, meds, and wound care/symptoms worsening. Gave DM survival skills education handout. Meds called into [facility]. Wrist ID cutoff. Patient ambulated out of hospital.
== END 2019-06-26 11:35 | disposition home or self-care (01) | DRG 720 ==
LOC: ER 16:12 → ED HOLD 20:59 → ORTHO 4S 22:30
PROVIDERS: ADMIT Hospitalist; ATTEND Family Medicine
DX: A41.9 Sepsis, unspecified organism (principal); E87.1 Hypo-osmolality and hyponatremia; L03.114 Cellulitis of left upper limb; E78.00 Pure hypercholesterolemia, unspecified; F15.90 Other stimulant use, unspecified, uncomplicated; I10 Essential (primary) hypertension; Z59.0 Homelessness; Z56.0 Unemployment, unspecified; Z79.899 Other long term (current) drug therapy; Z88.8 Allergy status to other drugs, medicaments and biological substances
CPT/HCPCS: 36415; 73130; 80048; 80202; 82948; 83036; 83605; 83735; 84145; 85025; 85651; 86140; 87040; 87081; 90732; 96365; 99285; G0378; J1650; J2543; J3370; J7030; J7050; Q2037

== ENCOUNTER 2019-07-02 06:18 | Emergency (ER) | payer MEDICAID ==
[~2019-07-02] VITALS: Ht 182.9 cm; Wt 77.3 kg
[~2019-07-02 06:18] MED LIST changes: -ALBU6.7H9 INH; +CLIN-90 PO; -FAMO-128 PO; -IBUP-1986 PO; -METF-436 PO; -TAM75C PO; -TRAZ300T2 PO; +ZOLP10TA PO
[2019-07-02] MEDS ORDERED: ibuprofen tablet 400 MG TABLET PO ONE (07:20)
[2019-07-02] MEDS ORDERED: lisinopril 10 MG tablet PO ONE (07:20)
[2019-07-02] MEDS ORDERED: clindamycin 150mg capsule PO ONE (07:20)
[2019-07-02] MEDS ORDERED: LIDO700A32 TOP (07:22)
[2019-07-02] MEDS ORDERED: IBUP-1984 PO (07:22)
[2019-07-02] MEDS ORDERED: ibuprofen 200mg tablet PO ONE (07:25)
[2019-07-02] MEDS ORDERED: LIDOcaine 5% patch TP SCH (08:00)
[2019-07-02 08:51] VITALS: BP 141/87
== END 2019-07-02 08:53 | disposition home or self-care (01) ==
LOC: ER 06:19
DX: S76.811A Strain of other specified muscles, fascia and tendons at thigh level, right thigh, initial encounter (principal); R10.31 Right lower quadrant pain; E78.00 Pure hypercholesterolemia, unspecified; I10 Essential (primary) hypertension; F15.90 Other stimulant use, unspecified, uncomplicated; Z72.89 Other problems related to lifestyle; Z59.0 Homelessness; Z56.0 Unemployment, unspecified; Z88.8 Allergy status to other drugs, medicaments and biological substances; Z79.899 Other long term (current) drug therapy; X58.XXXA Exposure to other specified factors, initial encounter; Y93.89 Activity, other specified; Y92.89 Other specified places as the place of occurrence of the external cause; Y99.8 Other external cause status
CPT/HCPCS: 99284

== ENCOUNTER 2019-12-16 21:02 | Inpatient (IN) | payer MEDICAID ==
[~2019-12-16] VITALS: Ht 170.2 cm; Wt 83.6 kg
[~2019-12-16 21:02] MED LIST changes: -CLIN-90 PO; +CLIN-97 PO; +LIDO700A32 TOP; +calcium chloride 100 MG/1 ML inj IV ONE; +epiNEPHrine 0.1mg/ml 10ml syringe ONE; +sod chloride 0.9% 10ml flush syringe IV ONE; +sodium bicarbonate (8.4%) 1 mEq/ml syringe ONE
--- NOTE | 2019-12-16 21:19 | NUR ---
PT BECAME PULSLESS AGAIN. CPR RESTARTED. DR. ALICIA BACK AT BEDSIDE.
--- NOTE | 2019-12-16 21:23 | NUR ---
CPR STOPPED, PULSE BACK 113 BPM. CONTINUES ON VENT.
--- NOTE | 2019-12-16 21:47 | NUR ---
CPR RESTARTED AT 1944, D/T SUSTAINED BRADYCARDIA AT [address] ALICIA AT BEDSIDE. CPR STOPPED AFTER 3 MIN AND 1 MG EPI. PULSE RETURNED TO 100, NOW [address]
[2019-12-16 21:51] LABS: BASOPHILS # (AUTO) 0.1 X10'3 (0-0.2); BASOPHILS % (AUTO) 0.5 % (0-1); EOSINOPHILS # (AUTO) 0.1 X10'3 (0-0.9); EOSINOPHILS % (AUTO) 0.6 % (0-6); HEMATOCRIT 43.1 % (42.0-52.0); HEMOGLOBIN 13.4 g/dl (14.0-17.9); LYMPHOCYTES % (AUTO) 24.8 % (21-51); MEAN CORPUSCULAR HEMOGLOBIN 28.7 PG (27.0-31.0); MEAN CORPUSCULAR VOLUME 92.7 FL (78-98); MONOCYTES # (AUTO) 1.1 X10'3 (0-0.9); MONOCYTES % (AUTO) 9.1 % (2-12); NEUTROPHILS # (AUTO) 7.8 X10'3 (1.8-7.7); PLATELET COUNT 256 X10'3 (140-440); RED BLOOD COUNT 4.65 X10'6 (4.70-6.10); RED CELL DISTRIBUTION WIDTH 16.6 % (11.5-14.5)
[2019-12-16 21:55] LABS: ABG BASE EXCESS -22.2 mmol/L (-2.0-2.0); ABG HCO3 11.6 mmol/L (22.0-26.0); ABG OXYGEN SATURATION 91.7 % (94-97); ABG PCO2 (T) 64.2 mmHg (35.0-48.0); ABG PO2 (T) 101.8 mmHg (75.0-100.0); ALLEN'S TEST Yes; FCOHb 0.5 % (0.0-3.9); FMetHb 0.4 % (0.0-1.5); FO2Hb 90.9 % (94-97); PATIENT TEMPERATURE 37.1; PEEP 5 cm H2O; RESPIRATORY RATE 18 b/min; TIDAL VOLUME 450 mL; TOTAL HEMOGLOBIN 13.6 G/dl (14.0-18.0)
--- NOTE | 2019-12-16 21:55 | NUR ---
Marli general warehouse associate contact to get Artic cooling blanket for this patient. Dr. Combs asked for cooling measures. The pt does have ice packs to various areas of body currently.
[2019-12-16] MEDS ORDERED: propofol 1000mg/100ml bottle 100 ML IV ONE (22:00)
[2019-12-16 22:01] LABS: ALANINE AMINOTRANSFERASE 97 U/L (12-78); ALBUMIN 2.6 G/DL (3.4-5.0); ALBUMIN/GLOBULIN RATIO 0.8 (1.1-1.5); ALKALINE PHOSPHATASE 140 IU/L (46-116); ANION GAP 19 (8-16); ASPARTATE AMINO TRANSFERASE 80 U/L (10-37); BILIRUBIN,TOTAL 0.9 MG/DL (0.1-1.0); BLOOD UREA NITROGEN 32 MG/DL (7-18); BUN/CREATININE RATIO 14.7 (5.4-32.0); CALCIUM 8.3 MG/DL (8.5-10.1); CHLORIDE 100 MMOL/L (99-107); CREATININE 2.17 MG/DL (0.60-1.10); POTASSIUM 4.6 MMOL/L (3.5-5.1); SODIUM 137 MMOL/L (135-145); TOTAL CARBON DIOXIDE 17.7 MMOL/L (24-32); TOTAL PROTEIN 5.9 G/DL (6.4-8.2); eGFR 31 ML/MIN
--- NOTE | 2019-12-16 22:06 | NUR ---
A RELATIVE IS HERE TO GET UPDATE. BUTTER WRAPPER , DARRYL , OUT TO TALK TO FAMMILY MEMBER. PT JUST STARTED ON PROPAFOL INFUSION. WAS MAKING SOME PURPOSEFUL MOVEMENT, MOVING UPPER EXTREMITY SLIGHTLY AND CHEWING ON THE TUBE INTERMITTENTLY. TEMP PAREDES PLACED, HR 118. COOLING MEASURES STARTED AND PT WITH ICE PACKS.
[2019-12-16 22:08] LABS: GLUCOSE 167 MG/DL (70-104)
--- NOTE | 2019-12-16 22:12 | NUR ---
Drea CRANE AT BEDSIDE FOR ADMISSON TO ICU
--- NOTE | 2019-12-16 22:15 | NUR ---
Spoke to his brother, Gucci Quick Updated him.
[2019-12-16] MEDS ORDERED: CISatracurium besylate inj. 100 MG in normal saline 100ml IV soln 90 ML IV PRN (22:16)
[2019-12-16] MEDS ORDERED: midazolam 100mg in NS 100ml 100 ML IV PRN ×2 (22:16→22:30)
[2019-12-16] MEDS ORDERED: FENTANYL-0.9 % NACL/PF 100 ML IV PRN (22:16)
[2019-12-16 22:20] LABS: ANISOCYTOSIS 1+; NUCLEATED RED BLOOD CELLS 1 /100WBC (0-0); PLATELET ESTIMATE NORMAL; TOTAL CELLS COUNTED 100
[2019-12-16] MEDS ORDERED: acetaminophen 650mg rectal suppository RC PRN (22:20)
[2019-12-16] MEDS ORDERED: ipratropium/albuterol 3ml nebule NEB PRN (22:20)
[2019-12-16] MEDS ORDERED: acetaminophen 325mg tablet PO PRN (22:20)
[2019-12-16] MEDS ORDERED: LIDOcaine 2% 10ml TOPICAL JELLY (Urojet) TP ONE (22:20)
[2019-12-16] MEDS ORDERED: potassium Cl 20 mEq SR tablet PO PRN ×2 (22:20)
[2019-12-16] MEDS ORDERED: potassium Cl 20mEq/100mL bag 100 ML IV PRN ×2 (22:20)
[2019-12-16] MEDS ORDERED: ondansetron/PF 4mg/2ml inj IV PRN (22:20)
[2019-12-16] MEDS ORDERED: CISatracurium **Bolus** 2 mg/ml inj IV PRN (22:20)
[2019-12-16 22:25] LABS: URINE AMPHETAMINE SCREEN POSITIVE (Neg); URINE BARBITUATE SCREEN NEGATIVE (Neg); URINE BENZODIAZEPINES SCREEN NEGATIVE (Neg); URINE CANNABINOID SCREEN POSITIVE (Neg); URINE COCAINE SCREEN NEGATIVE (Neg); URINE METHADONE SCREEN NEGATIVE (Neg); URINE OPIATE SCREEN NEGATIVE (Neg); URINE PHENCYCLIDINE SCREEN NEGATIVE (Neg)
[2019-12-16 22:28] LABS: CLARITY,URINE CLOUDY (Clear); COLOR,URINE YELLOW (Yellow); GLUCOSE, URINE NEGATIVE (Neg); KETONES,URINE NEGATIVE (Neg); LEUKOCYTE ESTERASE ,URINE NEGATIVE (Neg); NITRITES, URINE NEGATIVE (Neg); OCCULT BLOOD,URINE MODERATE (Neg); PH,URINE 5.5 (4.8-8.0); PROTEIN,URINE 100 mg/dl (Neg); UROBILINOGEN,URINE 0.2 E.U/dL (0.2-1.0)
[2019-12-16] MEDS ORDERED: fentaNYL/PF 50MCG/1 ML 2ML syringe IV ONE (22:30)
[2019-12-16 22:32] LABS: UA COLLECTION TYPE FOLEY CATH
[2019-12-16 22:33] LABS: AMORPHOUS URATES 2+; BACTERIA,URINE NONE SEEN /HPF (Neg); HYALINE CASTS 0-3 /LPF (NEGATIVE); MUCUS STRANDS FEW /LPF (Neg); SQUAMOUS EPITHELIAL CELL,UR FEW /LPF (FEW); TRANSITIONAL EPI CELLS,URINE FEW /HPF; WBC,URINE 0-4 /HPF (0-4)
--- NOTE | 2019-12-16 22:36 | NUR ---
HYPOTHERMIA TREATMENT WITH ARCTIC SUN STARTED. DR. ALICIA AT BEDSIDE AND REQUESTED TO PUT IN ORDERS FOR VERSED AND FENTANYL THE PROPAFOL IS REQUIRING REGULAR BOLUS TO KEEP PT SEDATED. CURRENT HR 110, AND BP 105/66
[2019-12-16] MEDS ORDERED: vancomycin/NS 1 GM ADD-VANTAGE 250 ML IV ONE (22:40)
--- NOTE | 2019-12-16 22:43 | NUR ---
Spoke with the sister, her name is Digna, She told me that he recently was a pt. in [place] and had PNE and various blood clots and at that time they had a discussion and he didn't want to be rescusitated or on a vent. I just told this information to Dr. Combs and Juan Alberto the molding machine setter PA and gave Juan Alberto the phone number for Digna.
--- NOTE | 2019-12-16 23:03 | NUR ---
PROPAFOL DISCONTINUED AND FENTANYL AND VERSED STARTED PER PROTOCOL.
--- NOTE | 2019-12-16 23:28 | NUR ---
DR. ALICIA AT BEDSIDE FOR CENTRAL LINE PLACEMENT.
[2019-12-17] VITALS (24 sets, daily range): BP systolic 81–135; BP diastolic 47–88
[2019-12-17] MEDS ORDERED: piperacillin/tazo 3.375gm/50ml 50 ML IV SCH
[2019-12-17] MEDS ORDERED: NORepinephrine 8mg/ 250ml NS 250 ML IV PRN (00:04)
[2019-12-17 00:11] LABS: OXYGEN SATURATION (MIXED VEN) 75.9 % (60-80)
[2019-12-17] MEDS ORDERED: normal saline 1000ml 1,000 ML IV ONE (00:15)
[2019-12-17] MEDS: normal saline 1000ML IV soln IVB ONE ×2 (00:43→00:55)
--- NOTE | 2019-12-17 01:09 | NUR ---
2350 PTS CENTRAL LINE SUCCESSFULLY PLACED AND CONFIRMED PLACEMENT BY XRAY AND OK TO USE PER DR. ALICIA. REPORTS TO ME THAT HE SPOKE WITH THE PATIENTS SISTER OVER THE PHONE VILMAShi IS A RETIRED ER NURSE). SHE REPORTED THAT PT WAS RECENTLY HOSPITALIZED IN [place] FOR PNEUMONIA AND HAS A HISTORY OF BLOOD CLOTS. SHE ALSO STATES THAT PT IS DNR.
--- NOTE | 2019-12-17 01:30 | NUR ---
PT ARRIVED TO ROOM VIA GURNEY AROUND 0105. REPORT RECEIVED FROM AYDEN CORBETT AND I WAS ABLE TO ASK QUESTIONS. PT TRANSFERRED TO HOSPITAL BED, PLACED ON VENT, AND PLACED ON OUR MONITOR. FENTANYL AND VERSED DRIPS TRANSFERRED TO CENTRAL LINE, CVP BEING MONITORED. Spinal Integration IS ON AND WORKING WELL. PT'S BP IS ON THE LOWER SIDE BUT HE IS MAINTAINING A MAP GREATER THAN 60mmHG. LEVOPHED IS ALREADY PRIMED IN THE PUMP SHOULD THE PT NEED IT. WILL CONTINUE TO MONITOR
[2019-12-17] MEDS: normal saline 1000ml 1,000 ML IV SCH ×3 (01:47→20:35)
[2019-12-17] MEDS: K, MAG and/or Phos replacement - Verify level? MC SCH ×2 (01:52→08:00)
[2019-12-17 02:07] LABS: CREATINE KINASE 1089 U/L (39-308)
[2019-12-17 02:16] LABS: ABG BASE EXCESS -8.9 mmol/L (-2.0-2.0); ABG HCO3 16.7 mmol/L (22.0-26.0); ABG OXYGEN SATURATION 98.5 % (94-97); ABG PCO2 (T) 29.7 mmHg (35.0-48.0); ABG PO2 (T) 121.2 mmHg (75.0-100.0); ALLEN'S TEST POSITIVE; FCOHb 0.3 % (0.0-3.9); FMetHb 0.2 % (0.0-1.5); PEEP 5 cm H2O; RESPIRATORY RATE 20 b/min; TOTAL HEMOGLOBIN 14.7 G/dl (14.0-18.0)
[2019-12-17 03:48] LABS: BASOPHILS % (AUTO) 0.1 % (0-1); EOSINOPHILS % (AUTO) 0 % (0-6); HEMATOCRIT 43.3 % (42.0-52.0); HEMOGLOBIN 13.9 g/dl (14.0-17.9); LYMPHOCYTES # (AUTO) 0.4 X10'3 (1.1-4.8); MEAN CORPUSCULAR HEMOGLOBIN 28.7 PG (27.0-31.0); MEAN CORPUSCULAR HGB CONC 32.1 g/dL (33.0-36.5); MEAN CORPUSCULAR VOLUME 89.3 FL (78-98); MEAN PLATELET VOLUME 8.3 FL (7.4-10.4); MONOCYTES # (AUTO) 1.4 X10'3 (0-0.9); MONOCYTES % (AUTO) 6.4 % (2-12); NEUTROPHILS # (AUTO) 20.5 X10'3 (1.8-7.7); NEUTROPHILS % (AUTO) 91.5 % (42-75); PLATELET COUNT 207 X10'3 (140-440); RED BLOOD COUNT 4.85 X10'6 (4.70-6.10); RED CELL DISTRIBUTION WIDTH 15.7 % (11.5-14.5); WHITE BLOOD COUNT 22.3 X10'3 (4.5-11.0)
[2019-12-17 03:58] LABS: PARTIAL THROMBOPLASTIN TIME 26 SECONDS (22-32)
[2019-12-17 04:02] LABS: ALANINE AMINOTRANSFERASE 125 U/L (12-78); ALBUMIN 2.5 G/DL (3.4-5.0); ALBUMIN/GLOBULIN RATIO 0.8 (1.1-1.5); ALKALINE PHOSPHATASE 138 IU/L (46-116); ANION GAP 13 (8-16); ASPARTATE AMINO TRANSFERASE 166 U/L (10-37); BILIRUBIN,TOTAL 1.1 MG/DL (0.1-1.0); BLOOD UREA NITROGEN 34 MG/DL (7-18); BUN/CREATININE RATIO 20.2 (5.4-32.0); CALCIUM 7.8 MG/DL (8.5-10.1); CHLORIDE 101 MMOL/L (99-107); CREATININE 1.68 MG/DL (0.60-1.10); GLUCOSE 152 MG/DL (70-104); POTASSIUM 3.6 MMOL/L (3.5-5.1); SODIUM 137 MMOL/L (135-145); TOTAL CARBON DIOXIDE 22.9 MMOL/L (24-32); TOTAL PROTEIN 5.8 G/DL (6.4-8.2); eGFR 42 ML/MIN
[2019-12-17 04:05] LABS: MAGNESIUM 1.6 MG/DL (1.5-2.4); PHOSPHORUS 3.6 MG/DL (2.3-4.5)
--- NOTE | 2019-12-17 06:20 | NUR ---
Problems reprioritized. Patient report given, questions answered & plan of care reviewed with YOUNG CORBETT.
--- NOTE | 2019-12-17 06:30 | NUR ---
Patient in room ICU 2040. I have received report from Sherry CORBETT and had the opportunity to ask questions and assume patient care.
--- NOTE | 2019-12-17 06:45 | NUR ---
Dr. Goodman called and ordered cooling to be stopped, sedation to be turned off, blankets to be put on patient to encourage rewarming. Dr. Goodman will be calling patient's sister My to discuss future interventions.
--- NOTE | 2019-12-17 07:45 | NUR ---
Donor network has been called. Reference # [id number] (Contact: Larry). Patient may be eligible donor, network will call back.
[2019-12-17 07:47] LABS: CREATINE KINASE 1849 U/L (39-308); TROPONIN I 0.41 NG/ML (0.0-0.05)
--- NOTE | 2019-12-17 07:59 | NUR ---
Patient's BP was 80/55 (MAP 63), decided to turn on Levophed, low dose (.1-.05). As soon as Levophed was started, patient's HR went from high 80s NSR, to low 60s - 40s AFIB. Levophed was turned off. Patient's rhythm quickly returned to NSR and HR returned to mid to high 80s within 30 seconds.
--- NOTE | 2019-12-17 08:15 | NUR ---
Patient is considered an eligible donor, according to the donor network. They are sending a community representative and do not want him extubated.
[2019-12-17] MEDS: heparin, porcine 5000 units/ml vial SQ SCH ×2 (08:33→21:30)
[2019-12-17] MEDS: piperacillin/tazo 3.375gm/50ml 50 ML IV SCH ×2 (08:33→16:04)
[2019-12-17] MEDS: pantoprazole 40 MG vial IV SCH (08:33)
[2019-12-17] MEDS ORDERED: CETI10TA18 PO (10:31)
[2019-12-17] MEDS ORDERED: LISI-643 PO (10:31)
[2019-12-17] MEDS ORDERED: normal saline 1000ml 1,000 ML IVB ONE (12:09)
[2019-12-17 13:35] LABS: BASOPHILS % (AUTO) 0.1 % (0-1); EOSINOPHILS % (AUTO) 0 % (0-6); HEMATOCRIT 41.2 % (42.0-52.0); HEMOGLOBIN 13.4 g/dl (14.0-17.9); LYMPHOCYTES # (AUTO) 0.4 X10'3 (1.1-4.8); LYMPHOCYTES % (AUTO) 2.5 % (21-51); MEAN CORPUSCULAR HEMOGLOBIN 28.4 PG (27.0-31.0); MEAN CORPUSCULAR HGB CONC 32.6 g/dL (33.0-36.5); MEAN CORPUSCULAR VOLUME 87.3 FL (78-98); MEAN PLATELET VOLUME 8.3 FL (7.4-10.4); MONOCYTES # (AUTO) 0.7 X10'3 (0-0.9); MONOCYTES % (AUTO) 4.5 % (2-12); NEUTROPHILS # (AUTO) 14.4 X10'3 (1.8-7.7); NEUTROPHILS % (AUTO) 92.9 % (42-75); PLATELET COUNT 197 X10'3 (140-440); RED BLOOD COUNT 4.71 X10'6 (4.70-6.10); RED CELL DISTRIBUTION WIDTH 15.7 % (11.5-14.5); WHITE BLOOD COUNT 15.5 X10'3 (4.5-11.0)
[2019-12-17 13:35] LABS: CLARITY,URINE CLOUDY (Clear); COLOR,URINE YELLOW (Yellow); GLUCOSE, URINE NEGATIVE (Neg); KETONES,URINE NEGATIVE (Neg); LEUKOCYTE ESTERASE ,URINE NEGATIVE (Neg); NITRITES, URINE NEGATIVE (Neg); OCCULT BLOOD,URINE LARGE (Neg); PH,URINE 5.5 (4.8-8.0); PROTEIN,URINE TRACE mg/dl (Neg); UROBILINOGEN,URINE 0.2 E.U/dL (0.2-1.0)
[2019-12-17 13:36] LABS: UA COLLECTION TYPE FOLEY CATH
[2019-12-17 13:48] LABS: URIC ACID CRYSTALS 4+ /HPF (NEGATIVE)
[2019-12-17 13:50] LABS: ALANINE AMINOTRANSFERASE 113 U/L (12-78); ALBUMIN 2.3 G/DL (3.4-5.0); ALBUMIN/GLOBULIN RATIO 0.8 (1.1-1.5); ALKALINE PHOSPHATASE 120 IU/L (46-116); ANION GAP 9 (8-16); ASPARTATE AMINO TRANSFERASE 143 U/L (10-37); BILIRUBIN,DIRECT 0.4 MG/DL (0-0.3); BILIRUBIN,TOTAL 0.9 MG/DL (0.1-1.0); BLOOD UREA NITROGEN 35 MG/DL (7-18); BUN/CREATININE RATIO 22.7 (5.4-32.0); CALCIUM 7.4 MG/DL (8.5-10.1); CHLORIDE 106 MMOL/L (99-107); CREATININE 1.54 MG/DL (0.60-1.10); GLUCOSE 141 MG/DL (70-104); MAGNESIUM 1.5 MG/DL (1.5-2.4); PHOSPHORUS 4.2 MG/DL (2.3-4.5); POTASSIUM 3.6 MMOL/L (3.5-5.1); SODIUM 136 MMOL/L (135-145); TOTAL CARBON DIOXIDE 20.8 MMOL/L (24-32); TOTAL PROTEIN 5.2 G/DL (6.4-8.2); eGFR 47 ML/MIN
[2019-12-17 13:56] LABS: BACTERIA,URINE 1+ /HPF (Neg); FINE GRANULAR CAST 0-3 /LPF (NEGATIVE); RBC,URINE 50-100 /HPF (0-2); SQUAMOUS EPITHELIAL CELL,UR FEW /LPF (FEW); WBC,URINE 0-4 /HPF (0-4)
--- NOTE | 2019-12-17 18:10 | NUR ---
Patient in room ICU 2040. I have received report from YOUNG CORBETT and had the opportunity to ask questions and assume patient care.
--- NOTE | 2019-12-17 18:30 | NUR ---
Problems reprioritized. Patient report given, questions answered & plan of care reviewed with Sherry CORBETT.
[2019-12-17 18:57] LABS: BASOPHILS % (AUTO) 0 % (0-1); EOSINOPHILS % (AUTO) 0 % (0-6); HEMATOCRIT 42.2 % (42.0-52.0); HEMOGLOBIN 13.6 g/dl (14.0-17.9); LYMPHOCYTES # (AUTO) 0.5 X10'3 (1.1-4.8); LYMPHOCYTES % (AUTO) 3.3 % (21-51); MEAN CORPUSCULAR HEMOGLOBIN 28.2 PG (27.0-31.0); MEAN CORPUSCULAR HGB CONC 32.2 g/dL (33.0-36.5); MEAN CORPUSCULAR VOLUME 87.7 FL (78-98); MEAN PLATELET VOLUME 8.3 FL (7.4-10.4); MONOCYTES # (AUTO) 0.8 X10'3 (0-0.9); NEUTROPHILS # (AUTO) 15.3 X10'3 (1.8-7.7); NEUTROPHILS % (AUTO) 91.7 % (42-75); PLATELET COUNT 210 X10'3 (140-440); RED BLOOD COUNT 4.81 X10'6 (4.70-6.10); RED CELL DISTRIBUTION WIDTH 16.2 % (11.5-14.5); WHITE BLOOD COUNT 16.6 X10'3 (4.5-11.0)
[2019-12-17 19:01] LABS: PARTIAL THROMBOPLASTIN TIME 25 SECONDS (22-32)
[2019-12-17 19:02] LABS: ALANINE AMINOTRANSFERASE 127 U/L (12-78); ALBUMIN 2.4 G/DL (3.4-5.0); ALBUMIN/GLOBULIN RATIO 0.8 (1.1-1.5); ALKALINE PHOSPHATASE 122 IU/L (46-116); ANION GAP 13 (8-16); ASPARTATE AMINO TRANSFERASE 151 U/L (10-37); BILIRUBIN,DIRECT 0.3 MG/DL (0-0.3); BILIRUBIN,TOTAL 1.1 MG/DL (0.1-1.0); BLOOD UREA NITROGEN 37 MG/DL (7-18); BUN/CREATININE RATIO 24.5 (5.4-32.0); CALCIUM 7.5 MG/DL (8.5-10.1); CHLORIDE 105 MMOL/L (99-107); CREATININE 1.51 MG/DL (0.60-1.10); GLUCOSE 127 MG/DL (70-104); MAGNESIUM 1.4 MG/DL (1.5-2.4); PHOSPHORUS 4.3 MG/DL (2.3-4.5); SODIUM 138 MMOL/L (135-145); TOTAL CARBON DIOXIDE 20.5 MMOL/L (24-32); TOTAL PROTEIN 5.5 G/DL (6.4-8.2); eGFR 48 ML/MIN
[2019-12-17 19:26] LABS: ABG BASE EXCESS -6.3 mmol/L (-2.0-2.0); ABG HCO3 16.4 mmol/L (22.0-26.0); ABG OXYGEN SATURATION 92.7 % (94-97); ABG PO2 (T) 64.6 mmHg (75.0-100.0); ALLEN'S TEST POSITIVE; FCOHb 0.2 % (0.0-3.9); FMetHb 0.3 % (0.0-1.5); FO2Hb 92.2 % (94-97); PATIENT TEMPERATURE 36.9; PEEP 5 cm H2O; RESPIRATORY RATE 12 b/min; TOTAL HEMOGLOBIN 14.8 G/dl (14.0-18.0)
[2019-12-17] MEDS: propofol 1000mg/100ml bottle 100 ML IV SCH (21:30)
[2019-12-18] VITALS (24 sets, daily range): BP systolic 116–178; BP diastolic 63–98
[2019-12-18] MEDS: piperacillin/tazo 3.375gm/50ml 50 ML IV SCH ×3 (00:23→16:00)
[2019-12-18 01:34] LABS: BASOPHILS # (AUTO) 0.1 X10'3 (0-0.2); BASOPHILS % (AUTO) 0.4 % (0-1); EOSINOPHILS % (AUTO) 0 % (0-6); HEMATOCRIT 41.7 % (42.0-52.0); HEMOGLOBIN 13.6 g/dl (14.0-17.9); LYMPHOCYTES # (AUTO) 0.8 X10'3 (1.1-4.8); MEAN CORPUSCULAR HEMOGLOBIN 28.7 PG (27.0-31.0); MEAN CORPUSCULAR HGB CONC 32.6 g/dL (33.0-36.5); MEAN CORPUSCULAR VOLUME 88.1 FL (78-98); MEAN PLATELET VOLUME 8.6 FL (7.4-10.4); MONOCYTES # (AUTO) 1.5 X10'3 (0-0.9); MONOCYTES % (AUTO) 6.9 % (2-12); NEUTROPHILS % (AUTO) 88.7 % (42-75); PLATELET COUNT 225 X10'3 (140-440); RED BLOOD COUNT 4.73 X10'6 (4.70-6.10); RED CELL DISTRIBUTION WIDTH 16.1 % (11.5-14.5); WHITE BLOOD COUNT 21.4 X10'3 (4.5-11.0)
[2019-12-18 01:37] LABS: PARTIAL THROMBOPLASTIN TIME 25 SECONDS (22-32)
[2019-12-18 01:38] LABS: ALANINE AMINOTRANSFERASE 124 U/L (12-78); ALBUMIN 2.4 G/DL (3.4-5.0); ALBUMIN/GLOBULIN RATIO 0.8 (1.1-1.5); ALKALINE PHOSPHATASE 122 IU/L (46-116); ANION GAP 13 (8-16); ASPARTATE AMINO TRANSFERASE 151 U/L (10-37); BILIRUBIN,DIRECT 0.3 MG/DL (0-0.3); BILIRUBIN,TOTAL 1.1 MG/DL (0.1-1.0); BLOOD UREA NITROGEN 37 MG/DL (7-18); BUN/CREATININE RATIO 22.7 (5.4-32.0); CALCIUM 7.7 MG/DL (8.5-10.1); CHLORIDE 105 MMOL/L (99-107); CREATININE 1.63 MG/DL (0.60-1.10); GLUCOSE 128 MG/DL (70-104); MAGNESIUM 1.4 MG/DL (1.5-2.4); POTASSIUM 4.1 MMOL/L (3.5-5.1); SODIUM 138 MMOL/L (135-145); TOTAL PROTEIN 5.6 G/DL (6.4-8.2); eGFR 44 ML/MIN
[2019-12-18] MEDS: mineral oil/petrolatum ophthal oint EACHEYE SCH ×4 (02:24→20:38)
[2019-12-18] MEDS: vancomycin/NS 1 GM ADD-VANTAGE 250 ML X 1 DOSE IV SCH (02:24)
[2019-12-18] MEDS: magnesium 2GM in 50ml NS 50 ML IV PRN (03:08)
[2019-12-18 04:01] LABS: ABG BASE EXCESS -7.5 mmol/L (-2.0-2.0); ABG HCO3 15.2 mmol/L (22.0-26.0); ABG OXYGEN SATURATION 96.3 % (94-97); ABG PO2 (T) 84.2 mmHg (75.0-100.0); ALLEN'S TEST POSITIVE; FCOHb 0.2 % (0.0-3.9); FMetHb 0.2 % (0.0-1.5); FO2Hb 95.9 % (94-97); PATIENT TEMPERATURE 36.6; PEEP 5 cm H2O; RESPIRATORY RATE 20 b/min; TOTAL HEMOGLOBIN 13.5 G/dl (14.0-18.0)
[2019-12-18] MEDS: magnesium 4gm in 100ml NS 100 ML IV PRN (04:28)
--- NOTE | 2019-12-18 06:44 | NUR ---
Problems reprioritized. Patient report given, questions answered & plan of care reviewed with QAMAR CORBETT.
--- NOTE | 2019-12-18 06:45 | NUR ---
Patient in room ICU 2040. I have received report from Sherry CORBETT and had the opportunity to ask questions and assume patient care.
[2019-12-18] MEDS: normal saline 1000ml 1,000 ML IV SCH ×2 (07:18→16:02)
[2019-12-18] MEDS: K, MAG and/or Phos replacement - Verify level? MC SCH (08:00)
[2019-12-18] MEDS: pantoprazole 40 MG vial IV SCH (08:21)
[2019-12-18] MEDS: heparin, porcine 5000 units/ml vial SQ SCH ×2 (08:21→20:39)
[2019-12-18 08:47] LABS: BASOPHILS # (AUTO) 0.1 X10'3 (0-0.2); BASOPHILS % (AUTO) 0.7 % (0-1); EOSINOPHILS % (AUTO) 0 % (0-6); HEMOGLOBIN 13.2 g/dl (14.0-17.9); LYMPHOCYTES # (AUTO) 0.9 X10'3 (1.1-4.8); LYMPHOCYTES % (AUTO) 4.7 % (21-51); MEAN CORPUSCULAR VOLUME 87.8 FL (78-98); MEAN PLATELET VOLUME 8.5 FL (7.4-10.4); MONOCYTES # (AUTO) 1.4 X10'3 (0-0.9); NEUTROPHILS # (AUTO) 16.9 X10'3 (1.8-7.7); NEUTROPHILS % (AUTO) 87.6 % (42-75); PLATELET COUNT 217 X10'3 (140-440); RED BLOOD COUNT 4.55 X10'6 (4.70-6.10); RED CELL DISTRIBUTION WIDTH 16.1 % (11.5-14.5); WHITE BLOOD COUNT 19.3 X10'3 (4.5-11.0)
[2019-12-18 08:58] LABS: PARTIAL THROMBOPLASTIN TIME 25 SECONDS (22-32)
[2019-12-18 09:00] LABS: ALANINE AMINOTRANSFERASE 116 U/L (12-78); ALBUMIN 2.4 G/DL (3.4-5.0); ALBUMIN/GLOBULIN RATIO 0.8 (1.1-1.5); ALKALINE PHOSPHATASE 113 IU/L (46-116); ANION GAP 14 (8-16); ASPARTATE AMINO TRANSFERASE 115 U/L (10-37); BILIRUBIN,DIRECT 0.4 MG/DL (0-0.3); BILIRUBIN,TOTAL 1.2 MG/DL (0.1-1.0); BLOOD UREA NITROGEN 37 MG/DL (7-18); BUN/CREATININE RATIO 23.1 (5.4-32.0); CHLORIDE 106 MMOL/L (99-107); GLUCOSE 143 MG/DL (70-104); PHOSPHORUS 3.4 MG/DL (2.3-4.5); POTASSIUM 3.8 MMOL/L (3.5-5.1); SODIUM 139 MMOL/L (135-145); TOTAL CARBON DIOXIDE 19.5 MMOL/L (24-32); TOTAL PROTEIN 5.6 G/DL (6.4-8.2); eGFR 45 ML/MIN
--- NOTE | 2019-12-18 12:20 | NUR ---
pt brother Gucci called at this time. he asked if the pt belongings and ID specifically was present with the pt. belongings were found in the drawer. Gucci stated he would come by shortly to pick things up.
[2019-12-18 12:50] LABS: CLARITY,URINE SLIGHTLY CLOUDY (Clear); COLOR,URINE YELLOW (Yellow); GLUCOSE, URINE NEGATIVE (Neg); KETONES,URINE TRACE mg/dl (Neg); LEUKOCYTE ESTERASE ,URINE NEGATIVE (Neg); NITRITES, URINE NEGATIVE (Neg); OCCULT BLOOD,URINE MODERATE (Neg); PROTEIN,URINE NEGATIVE (Neg); UROBILINOGEN,URINE 0.2 E.U/dL (0.2-1.0)
[2019-12-18 12:57] LABS: BASOPHILS # (AUTO) 0.1 X10'3 (0-0.2); BASOPHILS % (AUTO) 0.3 % (0-1); EOSINOPHILS % (AUTO) 0 % (0-6); HEMATOCRIT 40.8 % (42.0-52.0); HEMOGLOBIN 13.4 g/dl (14.0-17.9); LYMPHOCYTES # (AUTO) 0.8 X10'3 (1.1-4.8); LYMPHOCYTES % (AUTO) 4.2 % (21-51); MEAN CORPUSCULAR HEMOGLOBIN 28.6 PG (27.0-31.0); MEAN CORPUSCULAR HGB CONC 32.8 g/dL (33.0-36.5); MEAN CORPUSCULAR VOLUME 87.1 FL (78-98); MEAN PLATELET VOLUME 8.6 FL (7.4-10.4); MONOCYTES # (AUTO) 1.4 X10'3 (0-0.9); MONOCYTES % (AUTO) 7.3 % (2-12); NEUTROPHILS # (AUTO) 16.6 X10'3 (1.8-7.7); NEUTROPHILS % (AUTO) 88.2 % (42-75); PLATELET COUNT 228 X10'3 (140-440); RED BLOOD COUNT 4.69 X10'6 (4.70-6.10); RED CELL DISTRIBUTION WIDTH 15.9 % (11.5-14.5); WHITE BLOOD COUNT 18.8 X10'3 (4.5-11.0)
[2019-12-18 13:00] LABS: UA COLLECTION TYPE NON-SPECIFIED
[2019-12-18] MEDS: propofol 1000mg/100ml bottle 100 ML IV SCH ×2 (13:01→20:39)
[2019-12-18 13:09] LABS: BACTERIA,URINE FEW /HPF (Neg); WBC,URINE 0-4 /HPF (0-4)
[2019-12-18 13:10] LABS: COARSE GRANULAR CAST 0-3 /LPF (NEGATIVE); HYALINE CASTS 0-3 /LPF (NEGATIVE); MUCUS STRANDS NONE SEEN /LPF (Neg); RENAL CELLS, URINE FEW /HPF; SQUAMOUS EPITHELIAL CELL,UR NONE SEEN /LPF (FEW); URIC ACID CRYSTALS 4+ /HPF (NEGATIVE)
[2019-12-18 13:11] LABS: PARTIAL THROMBOPLASTIN TIME 26 SECONDS (22-32)
[2019-12-18 13:12] LABS: ALANINE AMINOTRANSFERASE 112 U/L (12-78); ALBUMIN 1.6 G/DL (3.4-5.0); ALBUMIN/GLOBULIN RATIO 0.4 (1.1-1.5); ALKALINE PHOSPHATASE 117 IU/L (46-116); ANION GAP 13 (8-16); ASPARTATE AMINO TRANSFERASE 125 U/L (10-37); BILIRUBIN,DIRECT 0.5 MG/DL (0-0.3); BILIRUBIN,TOTAL 1.2 MG/DL (0.1-1.0); BLOOD UREA NITROGEN 36 MG/DL (7-18); BUN/CREATININE RATIO 23.5 (5.4-32.0); CALCIUM 8.3 MG/DL (8.5-10.1); CHLORIDE 107 MMOL/L (99-107); CREATININE 1.53 MG/DL (0.60-1.10); GLUCOSE 153 MG/DL (70-104); MAGNESIUM 2.8 MG/DL (1.5-2.4); POTASSIUM 3.7 MMOL/L (3.5-5.1); SODIUM 139 MMOL/L (135-145); TOTAL CARBON DIOXIDE 18.7 MMOL/L (24-32); TOTAL PROTEIN 5.8 G/DL (6.4-8.2); eGFR 47 ML/MIN
--- NOTE | 2019-12-18 18:20 | NUR ---
Problems reprioritized. Patient report given, questions answered & plan of care reviewed with Sherry CORBETT.
--- NOTE | 2019-12-18 18:20 | NUR ---
Patient in room ICU 2040. I have received report from Johnathan CORBETT and had the opportunity to ask questions and assume patient care.
[2019-12-18 18:50] LABS: BASOPHILS # (AUTO) 0.1 X10'3 (0-0.2); BASOPHILS % (AUTO) 0.3 % (0-1); EOSINOPHILS % (AUTO) 0 % (0-6); HEMATOCRIT 40.2 % (42.0-52.0); HEMOGLOBIN 13.4 g/dl (14.0-17.9); LYMPHOCYTES # (AUTO) 0.7 X10'3 (1.1-4.8); LYMPHOCYTES % (AUTO) 3.9 % (21-51); MEAN CORPUSCULAR HEMOGLOBIN 29.1 PG (27.0-31.0); MEAN CORPUSCULAR HGB CONC 33.2 g/dL (33.0-36.5); MEAN CORPUSCULAR VOLUME 87.5 FL (78-98); MEAN PLATELET VOLUME 8.3 FL (7.4-10.4); MONOCYTES # (AUTO) 1.4 X10'3 (0-0.9); MONOCYTES % (AUTO) 7.3 % (2-12); NEUTROPHILS # (AUTO) 16.9 X10'3 (1.8-7.7); NEUTROPHILS % (AUTO) 88.5 % (42-75); PLATELET COUNT 223 X10'3 (140-440); RED BLOOD COUNT 4.59 X10'6 (4.70-6.10); WHITE BLOOD COUNT 19.1 X10'3 (4.5-11.0)
[2019-12-18 19:02] LABS: PARTIAL THROMBOPLASTIN TIME 25 SECONDS (22-32)
[2019-12-18 19:03] LABS: ALANINE AMINOTRANSFERASE 104 U/L (12-78); ALBUMIN 2.4 G/DL (3.4-5.0); ALBUMIN/GLOBULIN RATIO 0.7 (1.1-1.5); ALKALINE PHOSPHATASE 114 IU/L (46-116); ANION GAP 15 (8-16); ASPARTATE AMINO TRANSFERASE 112 U/L (10-37); BILIRUBIN,DIRECT 0.5 MG/DL (0-0.3); BILIRUBIN,TOTAL 1.2 MG/DL (0.1-1.0); BLOOD UREA NITROGEN 33 MG/DL (7-18); BUN/CREATININE RATIO 22.9 (5.4-32.0); CALCIUM 8.4 MG/DL (8.5-10.1); CHLORIDE 107 MMOL/L (99-107); CREATININE 1.44 MG/DL (0.60-1.10); GLUCOSE 154 MG/DL (70-104); MAGNESIUM 2.4 MG/DL (1.5-2.4); PHOSPHORUS 2.6 MG/DL (2.3-4.5); POTASSIUM 3.7 MMOL/L (3.5-5.1); SODIUM 140 MMOL/L (135-145); TOTAL PROTEIN 5.8 G/DL (6.4-8.2); eGFR 50 ML/MIN
[2019-12-18] MEDS: labetalol 20mg/4ml (5mg/ml) syringe IV PRN ×2 (19:53→22:12)
[2019-12-18] MEDS: lactobacillus rhamnosus 10,000 MMU CELLS/CAPSULE PO SCH (20:38)
[2019-12-18] MEDS: acetaminophen 325mg tablet PO PRN (21:46)
[2019-12-19] VITALS (27 sets, daily range): BP systolic 117–163; BP diastolic 77–103
[2019-12-19] MEDS: piperacillin/tazo 3.375gm/50ml 50 ML IV SCH ×3 (01:17→16:00)
[2019-12-19 01:41] LABS: BASOPHILS # (AUTO) 0.1 X10'3 (0-0.2); BASOPHILS % (AUTO) 0.3 % (0-1); EOSINOPHILS # (AUTO) 0.1 X10'3 (0-0.9); EOSINOPHILS % (AUTO) 0.5 % (0-6); HEMATOCRIT 40.8 % (42.0-52.0); HEMOGLOBIN 13.4 g/dl (14.0-17.9); LYMPHOCYTES # (AUTO) 0.9 X10'3 (1.1-4.8); LYMPHOCYTES % (AUTO) 4.3 % (21-51); MEAN CORPUSCULAR HEMOGLOBIN 29.1 PG (27.0-31.0); MEAN CORPUSCULAR VOLUME 88.2 FL (78-98); MEAN PLATELET VOLUME 8.7 FL (7.4-10.4); MONOCYTES # (AUTO) 1.3 X10'3 (0-0.9); MONOCYTES % (AUTO) 6.3 % (2-12); NEUTROPHILS # (AUTO) 18.2 X10'3 (1.8-7.7); NEUTROPHILS % (AUTO) 88.6 % (42-75); PLATELET COUNT 242 X10'3 (140-440); RED BLOOD COUNT 4.63 X10'6 (4.70-6.10); RED CELL DISTRIBUTION WIDTH 16.3 % (11.5-14.5); WHITE BLOOD COUNT 20.5 X10'3 (4.5-11.0)
[2019-12-19 01:44] LABS: ALANINE AMINOTRANSFERASE 95 U/L (12-78); ALBUMIN 2.4 G/DL (3.4-5.0); ALBUMIN/GLOBULIN RATIO 0.7 (1.1-1.5); ALKALINE PHOSPHATASE 116 IU/L (46-116); ANION GAP 12 (8-16); ASPARTATE AMINO TRANSFERASE 116 U/L (10-37); BILIRUBIN,DIRECT 0.5 MG/DL (0-0.3); BILIRUBIN,TOTAL 1.3 MG/DL (0.1-1.0); BLOOD UREA NITROGEN 34 MG/DL (7-18); CALCIUM 8.4 MG/DL (8.5-10.1); CHLORIDE 107 MMOL/L (99-107); CREATININE 1.62 MG/DL (0.60-1.10); GLUCOSE 164 MG/DL (70-104); MAGNESIUM 2.1 MG/DL (1.5-2.4); PHOSPHORUS 2.5 MG/DL (2.3-4.5); POTASSIUM 4.3 MMOL/L (3.5-5.1); SODIUM 139 MMOL/L (135-145); TOTAL CARBON DIOXIDE 20.1 MMOL/L (24-32); TOTAL PROTEIN 5.8 G/DL (6.4-8.2); eGFR 44 ML/MIN
[2019-12-19 01:49] LABS: PARTIAL THROMBOPLASTIN TIME 24 SECONDS (22-32)
[2019-12-19 02:48] LABS: ANISOCYTOSIS 1+; PLATELET ESTIMATE NORMAL; TOTAL CELLS COUNTED 100
[2019-12-19] MEDS: mineral oil/petrolatum ophthal oint EACHEYE SCH ×3 (03:03→13:29)
[2019-12-19] MEDS: vancomycin/NS 1 GM ADD-VANTAGE 250 ML X 1 DOSE IV SCH (03:04)
[2019-12-19] MEDS: normal saline 1000ml 1,000 ML IV SCH ×2 (03:05→13:29)
[2019-12-19 03:41] LABS: ABG BASE EXCESS -7.8 mmol/L (-2.0-2.0); ABG HCO3 14.4 mmol/L (22.0-26.0); ABG OXYGEN SATURATION 97.3 % (94-97); ABG PCO2 (T) 23.7 mmHg (35.0-48.0); ABG PO2 (T) 103.8 mmHg (75.0-100.0); FCOHb 0.7 % (0.0-3.9); FMetHb 0.2 % (0.0-1.5); FO2Hb 96.4 % (94-97); PATIENT TEMPERATURE 38.2; PEEP 5 cm H2O
[2019-12-19] MEDS: magnesium 2GM in 50ml NS 50 ML IV PRN (04:08)
[2019-12-19] MEDS: propofol 1000mg/100ml bottle 100 ML IV SCH ×2 (04:08→13:44)
--- NOTE | 2019-12-19 06:30 | NUR ---
Patient in room ICU 2040. I have received report from Sherry CORBETT and had the opportunity to ask questions and assume patient care.
--- NOTE | 2019-12-19 06:34 | NUR ---
Problems reprioritized. Patient report given, questions answered & plan of care reviewed with Allerga CORBETT.
[2019-12-19] MEDS: acetaminophen 325mg tablet PO PRN (06:36)
[2019-12-19 06:52] LABS: BASOPHILS % (AUTO) 0.1 % (0-1); EOSINOPHILS % (AUTO) 0 % (0-6); HEMATOCRIT 40.6 % (42.0-52.0); HEMOGLOBIN 13.2 g/dl (14.0-17.9); LYMPHOCYTES # (AUTO) 0.7 X10'3 (1.1-4.8); LYMPHOCYTES % (AUTO) 3.8 % (21-51); MEAN CORPUSCULAR HEMOGLOBIN 28.5 PG (27.0-31.0); MEAN CORPUSCULAR HGB CONC 32.6 g/dL (33.0-36.5); MEAN CORPUSCULAR VOLUME 87.2 FL (78-98); MEAN PLATELET VOLUME 8.6 FL (7.4-10.4); MONOCYTES # (AUTO) 1.2 X10'3 (0-0.9); NEUTROPHILS # (AUTO) 17.4 X10'3 (1.8-7.7); NEUTROPHILS % (AUTO) 90.1 % (42-75); PLATELET COUNT 237 X10'3 (140-440); RED BLOOD COUNT 4.66 X10'6 (4.70-6.10); RED CELL DISTRIBUTION WIDTH 16.2 % (11.5-14.5); WHITE BLOOD COUNT 19.3 X10'3 (4.5-11.0)
--- NOTE | 2019-12-19 07:00 | NUR ---
While transferring patient from hospital bed to CT table patient's central line was pulled out. Suture intact on anchor but no sutures were placed to line anchors. Pressure applied over dressing until suture removal kit brought from ICU. Soft swelling noted to right side of neck. Donor NetworkJerrell, notified of line pulled, will use PIV to right AC until further instructed. Will continue to monitor.
[2019-12-19 07:04] LABS: PARTIAL THROMBOPLASTIN TIME 26 SECONDS (22-32)
[2019-12-19 07:09] LABS: ALANINE AMINOTRANSFERASE 93 U/L (12-78); ALBUMIN 2.5 G/DL (3.4-5.0); ALBUMIN/GLOBULIN RATIO 0.7 (1.1-1.5); ALKALINE PHOSPHATASE 117 IU/L (46-116); ANION GAP 15 (8-16); ASPARTATE AMINO TRANSFERASE 112 U/L (10-37); BILIRUBIN,DIRECT 0.6 MG/DL (0-0.3); BILIRUBIN,TOTAL 1.5 MG/DL (0.1-1.0); BLOOD UREA NITROGEN 32 MG/DL (7-18); CALCIUM 8.7 MG/DL (8.5-10.1); CHLORIDE 108 MMOL/L (99-107); CREATININE 1.28 MG/DL (0.60-1.10); GLUCOSE 183 MG/DL (70-104); MAGNESIUM 2.3 MG/DL (1.5-2.4); PHOSPHORUS 2.5 MG/DL (2.3-4.5); POTASSIUM 4.3 MMOL/L (3.5-5.1); SODIUM 139 MMOL/L (135-145); TOTAL CARBON DIOXIDE 15.9 MMOL/L (24-32); TOTAL PROTEIN 6.1 G/DL (6.4-8.2); eGFR 58 ML/MIN
--- NOTE | 2019-12-19 07:30 | NUR ---
Returned from CT with RT and tech, patient repositioned and monitors transferred. CT disc requested for Donor Network. Will continue to monitor.
[2019-12-19] MEDS: K, MAG and/or Phos replacement - Verify level? MC SCH (08:00)
[2019-12-19] MEDS: heparin, porcine 5000 units/ml vial SQ SCH (08:48)
[2019-12-19] MEDS: lactobacillus rhamnosus 10,000 MMU CELLS/CAPSULE PO SCH (08:49)
[2019-12-19 09:03] LABS: CLARITY,URINE SLIGHTLY CLOUDY (Clear); COLOR,URINE YELLOW (Yellow); GLUCOSE, URINE NEGATIVE (Neg); KETONES,URINE 15 mg/dl (Neg); LEUKOCYTE ESTERASE ,URINE NEGATIVE (Neg); NITRITES, URINE NEGATIVE (Neg); OCCULT BLOOD,URINE LARGE (Neg); PH,URINE 5.5 (4.8-8.0); PROTEIN,URINE 100 mg/dl (Neg); UROBILINOGEN,URINE 0.2 E.U/dL (0.2-1.0)
[2019-12-19 09:11] LABS: UA COLLECTION TYPE FOLEY CATH
[2019-12-19 09:13] LABS: URIC ACID CRYSTALS 4+ /HPF (NEGATIVE)
[2019-12-19 09:14] LABS: RBC,URINE 50-100 /HPF (0-2)
[2019-12-19 09:16] LABS: BACTERIA,URINE FEW /HPF (Neg); SQUAMOUS EPITHELIAL CELL,UR NONE SEEN /LPF (FEW); WBC,URINE 0-4 /HPF (0-4)
[2019-12-19] MEDS: pantoprazole 40 MG vial IV SCH (09:55)
--- NOTE | 2019-12-19 10:59 | NUR ---
Reassessment: Pt remains intubated. Rewarmed after cooling measures. Donor network following for possible organ donation per notes. No nutrition support at this time. OG tube in place for suction, documented with coffee ground/green contents, 400 mL output 12/17 per I&O. LBM 12/16 documented as a smear. Will continue to follow closely and make recommendations as appropriate in line with patient's plan of care. Recommend: 1. IF tube feeding while intubated recommend vital AF at 75 ml/hr 2. IF tube feeding while intubated, prealbumin q Saturday/, daily weights, and additional water flush as needed 3. When extubated, advance diet as medically indicated to heart healthy Addendum: 12/19/19 at [address] Amended: Links added.
--- NOTE | 2019-12-19 11:11 | NUR ---
Patient's brother Gordon here to see patient. Spoke with sister on speaker phone. All belongings of credit card, watch, ID and clothing sent with Gordon. Gordon asked about $40 which is not documented on admit and is not documented in security. Notified Gordon states understanding. Will continue to monitor.
[2019-12-19 12:51] LABS: BASOPHILS # (AUTO) 0.1 X10'3 (0-0.2); BASOPHILS % (AUTO) 0.3 % (0-1); EOSINOPHILS % (AUTO) 0 % (0-6); HEMATOCRIT 40.5 % (42.0-52.0); HEMOGLOBIN 13.2 g/dl (14.0-17.9); LYMPHOCYTES # (AUTO) 0.8 X10'3 (1.1-4.8); LYMPHOCYTES % (AUTO) 4.3 % (21-51); MEAN CORPUSCULAR HEMOGLOBIN 28.3 PG (27.0-31.0); MEAN CORPUSCULAR HGB CONC 32.7 g/dL (33.0-36.5); MEAN CORPUSCULAR VOLUME 86.4 FL (78-98); MEAN PLATELET VOLUME 8.6 FL (7.4-10.4); MONOCYTES # (AUTO) 1.3 X10'3 (0-0.9); MONOCYTES % (AUTO) 6.6 % (2-12); NEUTROPHILS # (AUTO) 17.6 X10'3 (1.8-7.7); NEUTROPHILS % (AUTO) 88.8 % (42-75); PLATELET COUNT 233 X10'3 (140-440); RED BLOOD COUNT 4.69 X10'6 (4.70-6.10); WHITE BLOOD COUNT 19.8 X10'3 (4.5-11.0)
[2019-12-19] MEDS ORDERED: acetaminophen 325mg/10.15ml oral unit dose solution OGT PRN ×2 (12:51→12:52)
[2019-12-19 12:58] LABS: PARTIAL THROMBOPLASTIN TIME 27 SECONDS (22-32)
[2019-12-19 13:00] LABS: ALANINE AMINOTRANSFERASE 79 U/L (12-78); ALBUMIN 2.4 G/DL (3.4-5.0); ALBUMIN/GLOBULIN RATIO 0.7 (1.1-1.5); ALKALINE PHOSPHATASE 112 IU/L (46-116); ANION GAP 14 (8-16); ASPARTATE AMINO TRANSFERASE 104 U/L (10-37); BILIRUBIN,DIRECT 0.7 MG/DL (0-0.3); BILIRUBIN,TOTAL 1.4 MG/DL (0.1-1.0); BLOOD UREA NITROGEN 29 MG/DL (7-18); BUN/CREATININE RATIO 24.2 (5.4-32.0); CALCIUM 8.6 MG/DL (8.5-10.1); CHLORIDE 109 MMOL/L (99-107); GLUCOSE 167 MG/DL (70-104); PHOSPHORUS 2.5 MG/DL (2.3-4.5); POTASSIUM 4.3 MMOL/L (3.5-5.1); SODIUM 140 MMOL/L (135-145); TOTAL CARBON DIOXIDE 17.4 MMOL/L (24-32); TOTAL PROTEIN 5.9 G/DL (6.4-8.2); eGFR 62 ML/MIN
[2019-12-19 13:27] LABS: CLARITY,URINE SLIGHTLY CLOUDY (Clear); COLOR,URINE YELLOW (Yellow); GLUCOSE, URINE NEGATIVE (Neg); KETONES,URINE 15 mg/dl (Neg); LEUKOCYTE ESTERASE ,URINE NEGATIVE (Neg); NITRITES, URINE NEGATIVE (Neg); OCCULT BLOOD,URINE LARGE (Neg); PH,URINE 5.5 (4.8-8.0); PROTEIN,URINE 100 mg/dl (Neg); UROBILINOGEN,URINE 0.2 E.U/dL (0.2-1.0)
[2019-12-19 13:37] LABS: UA COLLECTION TYPE FOLEY CATH
[2019-12-19 13:43] LABS: URIC ACID CRYSTALS 4+ /HPF (NEGATIVE)
[2019-12-19] MEDS: magnesium 4gm in 100ml NS 100 ML IV PRN (13:43)
[2019-12-19 13:44] LABS: RBC,URINE TNTC /HPF (0-2)
[2019-12-19 13:45] LABS: BACTERIA,URINE FEW /HPF (Neg); SQUAMOUS EPITHELIAL CELL,UR NONE SEEN /LPF (FEW)
[2019-12-19 13:46] LABS: WBC,URINE 0-4 /HPF (0-4)
[2019-12-19] MEDS ORDERED: VANCOmycin 1250MG/NS 250ml Bag 250 ML IV SCH (14:00)
--- NOTE | 2019-12-19 14:00 | NUR ---
Patient in room ICU 2040. I have received report from Allegra CORBETT and had the opportunity to ask questions and assume patient care.
[2019-12-19] MEDS ORDERED: heparin 10,000 units/1 ML INJ IV ONE ×2 (15:05→15:35)
[2019-12-19] MEDS: LORazepam 2 mg/ml vial IV PRN ×3 (15:38→16:23)
[2019-12-19] MEDS: morphine 10mg/ml inj. IV PRN ×2 (15:38→16:42)
--- NOTE | 2019-12-19 15:54 | NUR ---
extubated to comfort care for possible harvest donor team at bed side Addendum: 12/19/19 at 1555 by Rosario Graham RT Amended: Links added.
--- NOTE | 2019-12-19 18:30 | NUR ---
Patient in room ICU 2040. I have received report from Allegra CORBETT and had the opportunity to ask questions and assume patient care. Pt is comfort measures DNR. Rhythm is sinus HR 113 oxygen saturation is 91% on 1L oxygen NC. Arterial BP is 117/91. at shift change.
--- NOTE | 2019-12-19 18:32 | NUR ---
Problems reprioritized. Patient report given, questions answered & plan of care reviewed with Maria L CORBETT.
[2019-12-20] VITALS (9 sets, daily range): BP systolic 102–146; BP diastolic 75–84
--- NOTE | 2019-12-20 05:45 | NUR ---
Right radial arterial line D/C'd. catheter removed intact & pressure dressing applied. Right AC saline lock also D/C'd #20G catheter removed intact. dressing applied.Rhythm is sinus tach HR 104 Oxygen saturation 91% RR 11/min. Pt will be transferred to [facility].
--- NOTE | 2019-12-20 07:40 | NUR ---
pt transferd to room 4013B, report to Mayuri.
[2019-12-20] MEDS ORDERED: morphine 5 MG/ML injection IV PRN (08:10)
[2019-12-20] MEDS: morphine 10mg/ml inj. IV PRN ×7 (08:12→23:45)
[2019-12-20] MEDS: hyoscyamine 0.125mg TAB.SUBL SL PRN (10:14)
[2019-12-20] MEDS: LORazepam 2 mg/ml vial IV PRN ×2 (11:18→17:29)
--- NOTE | 2019-12-20 11:42 | NUR ---
Pt has been made DNR w/ comfort care. [facility] 12/16. Will continue to monitor. Addendum: 12/20/19 at [address] Amended: Links added.
--- NOTE | 2019-12-20 18:41 | NUR ---
Problems reprioritized. Patient report given, questions answered & plan of care reviewed with
--- NOTE | 2019-12-20 18:44 | NUR ---
Patient in room ORTHO 4013. I have received report from Mayuri CORBETT and had the opportunity to ask questions and assume patient care.
[2019-12-21] MEDS ORDERED: VANCOMYCIN LEVEL IV ONE (01:30)
[2019-12-21] MEDS: LORazepam 2 mg/ml vial IV PRN ×2 (01:56→15:26)
[2019-12-21] MEDS: hyoscyamine 0.125mg TAB.SUBL SL PRN (02:04)
[2019-12-21] MEDS: morphine 10mg/ml inj. IV PRN ×3 (05:50→15:18)
--- NOTE | 2019-12-21 06:26 | NUR ---
Problems reprioritized. Patient report given, questions answered & plan of care reviewed with SILVIA CORBETT.
--- NOTE | 2019-12-21 06:29 | NUR ---
Patient in room ORTHO 4013. I have received report from Drea and had the opportunity to ask questions and assume patient care.
--- NOTE | 2019-12-21 17:56 | NUR ---
Patient at [id number]
--- NOTE | 2019-12-21 19:00 | NUR ---
REPORT REC'D FROM CHELLE VEGA. PT IS AND AWAITING PICKUP FROM MORTUARY, DR OCHOA WAS NOTIFIED BY PAGE. FAMILY NOTIFIED, DONOR NETWORK NOTIFIED, PT IS NOT A CANDIDATE.
--- NOTE | 2019-12-21 21:53 | NUR ---
PT WAS PICKED UP BY [employer]ORTUARY AT 2019.
== END 2019-12-21 21:00 | disposition expired | DRG 812 ==
LOC: ER 21:03 → ED HOLD 22:16 → ICU 2S 12-17 00:36 → ORTHO 4S 12-20 07:53
PROVIDERS: ADMIT Internal Medicine Critical Care Medicine; ATTEND Internal Medicine Critical Care Medicine
PROC: 5A1945Z Respiratory Ventilation, 24-96 Consecutive Hours (ICD-10-PCS; principal; 2019-12-16)
PROC: 0BH17EZ Insertion of Endotracheal Airway into Trachea, Via Natural or Artificial Opening (ICD-10-PCS; 2019-12-16)
PROC: 02HV33Z Insertion of Infusion Device into Superior Vena Cava, Percutaneous Approach (ICD-10-PCS; 2019-12-16)
PROC: B548ZZA Ultrasonography of Superior Vena Cava, Guidance (ICD-10-PCS; 2019-12-16)
PROC: 5A12012 Performance of Cardiac Output, Single, Manual (ICD-10-PCS; 2019-12-16)
DX: T43.621A Poisoning by amphetamines, accidental (unintentional), initial encounter (principal); G93.1 Anoxic brain damage, not elsewhere classified; D72.829 Elevated white blood cell count, unspecified; E78.00 Pure hypercholesterolemia, unspecified; F15.10 Other stimulant abuse, uncomplicated; F20.9 Schizophrenia, unspecified; I10 Essential (primary) hypertension; Z20.828 Contact with and (suspected) exposure to other viral communicable diseases; J11.1 Influenza due to unidentified influenza virus with other respiratory manifestations; I46.9 Cardiac arrest, cause unspecified; J96.01 Acute respiratory failure with hypoxia; J96.02 Acute respiratory failure with hypercapnia; N17.9 Acute kidney failure, unspecified; R56.9 Unspecified convulsions; Z51.5 Encounter for palliative care; Z66 Do not resuscitate; I95.9 Hypotension, unspecified; Z59.0 Homelessness; Z79.899 Other long term (current) drug therapy; Y92.89 Other specified places as the place of occurrence of the external cause
CPT/HCPCS: 36415; 36600; 71045; 74176; 76700; 80053; 80305; 81001; 82248; 82550; 82803; 82810; 82948; 83605; 83735; 83880; 84100; 84484; 85018; 85025; 85610; 85730; 86885; 86900; 86901; 87040; 87070; 87081; 87635; 93005; 93306; 94002; 94003; 94760; 99285; C9113; G0378; J0171; J1644; J2060; J2270; J2405; J2543; J2704; J3010; J3370; J3475; J3490; J7030